=== PATIENT | female | born 1965 | race American Indian/Alaskan Native ===

== ENCOUNTER 2019-06-07 20:54 | Emergency (ER) | payer SELFPAY ==
--- NOTE | 2019-06-07 21:19 | Event Note ---
ED Screening Note Date of service: 06/07/19 Time: 21:13 ED Screening Note: Reports rt leg pain and swelling x 2 days. no sob cp. Denies clotting disorder and no previous blood clot. Denies injuries. Saw pcp 04/2019 and A1c13.H/o DM on Osampic qweekly injection. Reports neuropathy to feet. Has not seen PCP in 1 yearprior to EXT: Rt foot red/ swollen TTP. PT/DP brennan 2+. Left foot with small scrtach solitario This initial assessment/diagnostic orders/clinical plan/treatment(s) is/are subj ect to change based on patients health status, clinical progression and re- assessment by fellow clinical providers in the ED. Further treatment and workup at subsequent clinical providers discretion. Patient/guardian urged not to elope from the ED as their condition may be serious if not clinically assessed and managed. Initial orders include: labs, xray
[2019-06-07 21:25] VITALS: BP 141/89
[2019-06-07] MEDS ORDERED: TETANUS,DIPH,PERTUSS(ACELL) VACCINE 0.5 ML SYRINGE IM ONE (21:33)
--- NOTE | 2019-06-07 21:36 | Emergency Department Report ---
ED Extremity Problem HPI - General Chief complaint: Extremity Injury, Lower Stated complaint: LEG SWELLING Time Seen by Provider: 06/07/19 21:12 Source: patient Mode of arrival: Ambulatory Limitations: No Limitations - History of Present Illness Initial comments: 54-year-old female with history of diabetes presents to ED with right foot pain and swelling 2 days. She states the pain is radiating up into the ankle and right lower leg. Foot is mildly swollen. She denies trauma to the right foot. Denies any history of gout. Patient states she has been doing construction on her home, and sustained a skin tear to the LEFT fifth toe. Patient denies any other issues with the left foot. MD Complaint: extremity pain, extremity swelling -: days(s) (2) Location: right, other (foot) History of Same: No Radiation: proximal Quality: aching Consistency: constant Improves with: nothing Worsens with: nothing Associated Symptoms: denies: chest pain, shortness of breath, fever - Related Data Previous Rx's Medication Instructions Recorded Last Taken Type Naproxen [Naprosyn] 500 mg PO BID #20 tablet 06/07/19 Unknown Rx Sulfamethoxazole/Trimethoprim 1 each PO BID 10 Days #20 tablet 06/07/19 Unknown Rx [Bactrim DS TAB] cephALEXin [Keflex] 500 mg PO Q12HR 10 Days #20 cap 06/07/19 Unknown Rx Allergies Allergy/AdvReac Type Severity Reaction Status Date / Time No Known Allergies Allergy Unverified 06/07/19 21:16 ED Review of Systems ROS: Stated complaint: LEG SWELLING Other details as noted in HPI Comment: All other systems reviewed and negative Constitutional: denies: chills, fever Respiratory: denies: shortness of breath Cardiovascular: denies: chest pain Gastrointestinal: denies: nausea, vomiting Musculoskeletal: as per HPI ED Past Medical Hx - Past Medical History Previous Medical History?: Yes Hx Diabetes: Yes Additional medical history: Neuropathy - Surgical History Past Surgical History?: No - Social History Smoking Status: Never Smoker Substance Use Type: None - Medications Home Medications: Home Medications Medication Instructions Recorded Confirmed Last Taken Type Naproxen [Naprosyn] 500 mg PO BID #20 tablet 06/07/19 Unknown Rx Sulfamethoxazole/Trimethoprim 1 each PO BID 10 Days #20 tablet 06/07/19 Unknown Rx [Bactrim DS TAB] cephALEXin [Keflex] 500 mg PO Q12HR 10 Days #20 cap 06/07/19 Unknown Rx ED Physical Exam - General Limitations: No Limitations General appearance: alert, in no apparent distress - Head Head exam: Present: atraumatic, normocephalic - Eye Eye exam: Present: normal appearance - ENT ENT exam: Present: mucous membranes moist - Neck Neck exam: Present: normal inspection - Respiratory Respiratory exam: Present: normal lung sounds bilaterally. Absent: respiratory distress - Cardiovascular Cardiovascular Exam: Present: normal rhythm, tachycardia (slight) - GI/Abdominal GI/Abdominal exam: Absent: distended - Extremities Exam Extremities exam: Present: other (mild erythema and mild tenderness to the right great toe and dorsal right foot; very minimal swelling present to the right foot; no erythema present on right lower leg; skin tear present to left 5th toe, nontender). Absent: calf tenderness - Neurological Exam Neurological exam: Present: alert, oriented X3. Absent: motor sensory deficit - Psychiatric Psychiatric exam: Present: normal affect, normal mood - Skin Skin exam: Present: warm, dry, intact ED Course Vital Signs 06/07/19 20:58 Temperature 99.7 F H Pulse Rate 106 H Respiratory 20 Rate Blood Pressure 141/89 O2 Sat by Pulse 97 Oximetry ED Medical Decision Making - Lab Data Result diagrams: 06/07/19 22:41 06/07/19 22:41 - Radiology Data Radiology results: report reviewed, image reviewed - Medical Decision Making Right foot cellulitis. Xrays unremarkable. Hx diabetes, glucose 222, no sign of DKA. WBCs only mildly elevated at 11.5. Prescriptions given for antibiotics. Outpt f/u advised. Return precautions given. - Differential Diagnosis cellulitis Critical care attestation.: If time is entered above; I have spent that time in minutes in the direct care of this critically ill patient, excluding procedure time. ED Disposition Clinical Impression: Cellulitis of right foot Disposition: DC-01 TO HOME OR SELFCARE Is pt being admited?: No Condition: Stable Instructions: Cellulitis (ED) Prescriptions: Sulfamethoxazole/Trimethoprim [Bactrim DS TAB] 1 each PO BID 10 Days #20 tablet cephALEXin [Keflex] 500 mg PO Q12HR 10 Days #20 cap Naproxen [Naprosyn] 500 mg PO BID #20 tablet Referrals: PRIMARY CARE [Primary Care Provider] - 3-5 Days [facility] [Provider Group] - 3-5 Days Time of Disposition: 23:29
--- NOTE | 2019-06-07 22:09 | XRay Report ---
Right foot-3 views INDICATION: Rt foot pain swelling and redness. COMPARISON: None. IMPRESSION: No acute osseous or soft tissue abnormality. Bipartite medial sesamoid and mild great toe MTP DJD. Signer Name: Som Silva MD Signed: 06/07/2019 10:05 PM Workstation Name: [id number]
[2019-06-07 22:56] LABS: Basophils % (Auto) 0.4 % (0.0-1.8); Eosinophils # (Auto) 0.1 K/mm3 (0.0-0.4); Hematocrit 38.2 % (30.3-42.9); Hemoglobin 12.4 gm/dl (10.1-14.3); Lymphocytes # (Auto) 2.2 K/mm3 (1.2-5.4); Lymphocytes % (Auto) 19.2 % (13.4-35.0); Mean Corpuscular HGB Conc 32 % (30-34); Mean Corpuscular Volume 84 fl (79-97); Monocytes # (Auto) 1.1 K/mm3 (0.0-0.8); Monocytes % (Auto) 9.2 % (0.0-7.3); Platelet Count 250 K/mm3 (140-440); Red Blood Count 4.54 M/mm3 (3.65-5.03); Red Cell Distribution Width 11.9 % (13.2-15.2)
[2019-06-07 23:19] LABS: Alanine Aminotransferase 41 units/L (7-56); BUN/Creatinine Ratio 14; Blood Urea Nitrogen 7 mg/dL (7-17); Calcium 9.4 mg/dL (8.4-10.2); Hemolysis Index 40
== END 2019-06-07 23:40 | disposition home or self-care (01) ==
LOC: ED 20:54
DX: L03.115 Cellulitis of right lower limb (principal); E11.40 Type 2 diabetes mellitus with diabetic neuropathy, unspecified; Z79.899 Other long term (current) drug therapy
CPT/HCPCS: 36415; 80053; 85025; 90471; 90715

== ENCOUNTER 2019-06-11 14:03 | Inpatient (IN) | payer BC ==
--- NOTE | 2019-06-11 14:35 | Event Note ---
ED Screening Note Date of service: 06/11/19 Time: 14:34 ED Screening Note: Pt complains of worsening swelling/redness of right great toe x 2 days seen here in ED 2 days ago for same +DM placed on keflex and bactrim foot XR wnl +diabetic neuropathy states stuck a pin in the foot to see if pus drained-denies drainage WBCs 11.5 06/09/19 This initial assessment/diagnostic orders/clinical plan/treatment(s) is/are subject to change based on patients health status, clinical progression and re-assessment by fellow clinical providers in the ED. Further treatment and workup at subsequent clinical providers discretion. Patient/guardian urged not to elope from the ED as their condition may be serious if not clinically assessed and managed. Initial orders include: Labs
[2019-06-11 15:19] LABS: Basophils % (Auto) 0.4 % (0.0-1.8); Eosinophils # (Auto) 0.3 K/mm3 (0.0-0.4); Eosinophils % (Auto) 2.6 % (0.0-4.3); Hematocrit 36.7 % (30.3-42.9); Hemoglobin 12.1 gm/dl (10.1-14.3); Lymphocytes # (Auto) 1.6 K/mm3 (1.2-5.4); Lymphocytes % (Auto) 15.9 % (13.4-35.0); Mean Corpuscular HGB Conc 33 % (30-34); Mean Corpuscular Volume 84 fl (79-97); Monocytes # (Auto) 1.1 K/mm3 (0.0-0.8); Platelet Count 311 K/mm3 (140-440); Red Blood Count 4.37 M/mm3 (3.65-5.03); Red Cell Distribution Width 11.7 % (13.2-15.2)
[2019-06-11 15:38] LABS: BUN/Creatinine Ratio 17; Blood Urea Nitrogen 12 mg/dL (7-17); Calcium 9.5 mg/dL (8.4-10.2); Hemolysis Index 9
--- NOTE | 2019-06-11 17:38 | XRay Report ---
RIGHT FOOT 3 VIEWS INDICATION: foot pain. COMPARISON: 4 days prior. FINDINGS: No acute skeletal abnormality. There is soft tissue swelling in the forefoot medially in the region o f the great toe. IMPRESSION: 1. Soft tissue swelling in the great toe. No acute skeletal abnormality. Signer Name: Emil Torres MD Signed: 06/11/2019 5:34 PM Workstation Name: [id number]
[2019-06-11] MEDS ORDERED: PIPERACIL/TAZOBACTA 4.5/NS 100 4.5 GM/100 ML VIAL IV ONE (18:29)
[2019-06-11] MEDS ORDERED: SODIUM CHLORIDE 0.9% 1000 ML 1,000 ML IV ONE (18:29)
--- NOTE | 2019-06-11 18:34 | Emergency Department Report ---
<MORENITA GUZMAN - Last Filed: 06/11/19 18:29> - General Chief complaint: Extremity Problem,Nontraumatic Stated complaint: R TOE INFECTED Time Seen by Provider: 06/11/19 14:32 Source: patient Mode of arrival: Ambulatory Limitations: No Limitations - History of Present Illness Initial comments: This is a 54-year-old female nontoxic, well nourished in appearance, no acute signs of distress presents to the ED with c/o of worsening of right great toe. Stated now redness is going up to the foot to the joint. Patient was seen several days ago and was placed on Keflex and Bactrim. Stated has worsen with purulent drainage and swelling. Patient denies any fever, chills, nausea, vomiting, chest pain, short of breath, headache or stiff neck. Deneis any al lertgies with Medical history includes diabetes. -: days(s) Location: L foot Severity: mild Severity scale (0 -10): 8 Quality: aching Consistency: constant Improves with: none Worsens with: none Context: none Associated symptoms: denies other symptoms - Related Data Previous Rx's Medication Instructions Recorded Last Taken Type Naproxen [Naprosyn] 500 mg PO BID #20 tablet 06/07/19 Unknown Rx Sulfamethoxazole/Trimethoprim 1 each PO BID 10 Days #20 tablet 06/07/19 Unknown Rx [Bactrim DS TAB] cephALEXin [Keflex] 500 mg PO Q12HR 10 Days #20 cap 06/07/19 Unknown Rx Allergies Allergy/AdvReac Type Severity Reaction Status Date / Time No Known Allergies Allergy Unverified 06/07/19 21:16 Abscess Boil HPI - HPI Chief Complaint: Extremity Problem,Nontraumatic Stated Complaint: R TOE INFECTED Time Seen by Provider: 06/11/19 14:32 Home Medications: Previous Rx's Medication Instructions Recorded Last Taken Type Naproxen [Naprosyn] 500 mg PO BID #20 tablet 06/07/19 Unknown Rx Sulfamethoxazole/Trimethoprim 1 each PO BID 10 Days #20 tablet 06/07/19 Unknown Rx [Bactrim DS TAB] cephALEXin [Keflex] 500 mg PO Q12HR 10 Days #20 cap 06/07/19 Unknown Rx Allergies/Adverse Reactions: Allergies Allergy/AdvReac Type Severity Reaction Status Date / Time No Known Allergies Allergy Unverified 06/07/19 21:16 ED Review of Systems Constitutional: denies: chills, fever Eyes: denies: eye pain, eye discharge, vision change ENT: denies: ear pain, throat pain Respiratory: denies: cough, shortness of breath, wheezing Cardiovascular: denies: chest pain, palpitations Endocrine: no symptoms reported Gastrointestinal: denies: abdominal pain, nausea, diarrhea Genitourinary: denies: urgency, dysuria, discharge Musculoskeletal: denies: back pain, joint swelling, arthralgia Skin: denies: rash, lesions Neurological: denies: headache, weakness, paresthesias Psychiatric: denies: anxiety, depression Hematological/Lymphatic: denies: easy bleeding, easy bruising ED Past Medical Hx - Past Medical History Previous Medical History?: Yes Hx Diabetes: Yes Additional medical history: Neuropathy - Surgical History Past Surgical History?: No - Social History Smoking Status: Never Smoker Substance Use Type: None - Medications Home Medications: Home Medications Medication Instructions Recorded Confirmed Last Taken Type Naproxen [Naprosyn] 500 mg PO BID #20 tablet 06/07/19 Unknown Rx Sulfamethoxazole/Trimethoprim 1 each PO BID 10 Days #20 tablet 06/07/19 Unknown Rx [Bactrim DS TAB] cephALEXin [Keflex] 500 mg PO Q12HR 10 Days #20 cap 06/07/19 Unknown Rx ED Physical Exam - General Limitations: No Limitations General appearance: alert, in no apparent distress - Head Head exam: Present: atraumatic, normocephalic - Neck Neck exam: Present: normal inspection, full ROM - Extremities Exam Extremities exam: Present: full ROM, tenderness, normal capillary refill, joint swelling - Expanded Lower Extremity Exam Left Hip exam: Present: normal inspection, full ROM. Absent: tenderness Upper Leg exam: Present: normal inspection, full ROM. Absent: tenderness Knee exam: Present: normal inspection, full ROM. Absent: tenderness Lower Leg exam: Present: normal inspection, full ROM. Absent: tenderness Ankle exam: Present: normal inspection, full ROM. Absent: tenderness Foot/Toe exam: Present: full ROM, tenderness, swelling, ecchymosis, erythema. Absent: abrasion, laceration, deformity, crepidus, dislocation, amputation, puncture wound, foreign body, calcaneal tenderness, tenderness at base of 5th metatarsal, nail avulsion, subungual hematoma Neuro vascular tendon exam: Present: no vascular compromise Gait: Positive: observed and limited by pain 1 - abscess with cellultitis - Back Exam Back exam: Present: normal inspection, full ROM - Neurological Exam Neurological exam: Present: alert, oriented X3, normal gait - Psychiatric Psychiatric exam: Present: normal affect, normal mood ED Course - Reevaluation(s) Reevaluation #1: 06/11/19 18:32 Patient is speaking in full sentences with no signs of distress noted. - Consultations Consultation #1: 06/11/19 17:21 Patient has been consulted with Dr. Clemens about patient history, physical exam, and labs and agrees for admission Consultation #2: 06/11/19 18:33 Patient has been consulted with Marianela Villa about patient history, physical exam, and labs and agrees for admission with hospitalist ED Medical Decision Making - Lab Data Result diagrams: 06/11/19 14:58 06/11/19 14:58 - Medical Decision Making 54-year-old female that presents with right great toe sialitis an abscess. Patient is stable and was examined by me. Patient is treatment failure. Labs obtained. Patient was consulted with Dr. Ca. Patient is admitted with hospitalist. Patient started on Zosyn and clindamycin IV. At time of admission, the patient does not seem toxic or ill in appearance. No acute signs of distress noted. Patient agrees to admission treatment plan of care. No further questions noted by the patient. ED Disposition Clinical Impression: Cellulitis of right foot, Failure of outpatient treatment Foot ulcer Qualifiers: Laterality: right Non-pressure ulcer stage: with fat layer exposed Qualified Code(s): L97.512 - Non-pressure chronic ulcer of other part of right foot with fat layer exposed Disposition: 09 OP ADMIT IP TO THIS HOSP Is pt being admited?: Yes Condition: Critical <SERGIO CLEMENS III - Last Filed: 06/11/19 18:41> ED Review of Systems ROS: Stated complaint: R TOE INFECTED Other details as noted in HPI Comment: All other systems reviewed and negative ED Past Medical Hx - Past Medical History Previous Medical History?: Yes Hx Diabetes: Yes - Surgical History Past Surgical History?: No - Family History Family history: no significant - Social History Smoking Status: Never Smoker Substance Use Type: None ED Physical Exam - General Limitations: No Limitations General appearance: alert, in no apparent distress - Head Head exam: Present: atraumatic, normocephalic - Eye Eye exam: Present: normal appearance - ENT ENT exam: Present: mucous membranes moist - Neck Neck exam: Present: normal inspection - Respiratory Respiratory exam: Present: normal lung sounds bilaterally. Absent: respiratory distress - Cardiovascular Cardiovascular Exam: Present: regular rate, normal rhythm. Absent: systolic murmur, diastolic murmur, rubs, gallop - GI/Abdominal GI/Abdominal exam: Present: soft, normal bowel sounds - Rectal Rectal exam: Present: deferred - Extremities Exam Extremities exam: Present: normal inspection - Back Exam Back exam: Present: normal inspection - Neurological Exam Neurological exam: Present: alert, oriented X3 - Psychiatric Psychiatric exam: Present: normal affect, normal mood - Skin Skin exam: Present: warm, dry, normal color, other (open ulcer noted on the right great toe. Skin is degloving.). Absent: rash ED Course Vital Signs 06/11/19 06/11/19 14:12 18:32 Temperature 97.7 F Pulse Rate 89 Respiratory 18 16 Rate Blood Pressure 135/87 O2 Sat by Pulse 98 Oximetry - Reevaluation(s) Reevaluation #2: I discussed plan of care with patient. I examined the patient. Patient agrees with plan of care and admission. Patient will admitted to the hospital service. Dr. Ca has been consult. I discussed case with Dr. Ca. 06/11/19 18:39 ED Medical Decision Making - Lab Data Result diagrams: 06/11/19 14:58 06/11/19 14:58 Critical Care Time: Yes Critical care time in (mins) excluding proc time.: 35 Critical care attestation.: If time is entered above; I have spent that time in minutes in the direct care of this critically ill patient, excluding procedure time. Critical Care Time: 35 minutes ED Disposition Is pt being admited?: Yes Does the pt Need Aspirin: No Time of Disposition: 18:39
--- NOTE | 2019-06-11 21:42 | History and Physical Report ---
History of Present Illness Date of examination: 06/11/19 Date of admission: 06/11/19 20:20 Chief complaint: Right great to infection History of present illness: Pt is a 54-year-old female with PMHx of DM type 2 who presents to the ER with c/o right great toe infection. Pt states that she noticed that her right great toe was swollen, she came to the ER and was prescribed antibiotics. Pt states that she was seen in the ER 5 days ago and was started on the antibiotic (Keflex and Bactrim). Pt states that she developed a blister on her plantar area of the right great toe 2 days after starting the antibiotics, she notices yellow discharged around the blister, the swelling and pain get worse, pt states that she was concern for a DVT, she decided to return to the ER for evaluation. Pt c/o chills, she denies fever, denies nausea, denies vomiting, denies chest pain, denies short of breath, denies headache. Pt was seen in the ER, she was started on IV antibiotic and admitted for further evaluation and treatment. Past History Past Medical History: diabetes, hyperlipidemia Past Surgical History: No surgical history Social history: no significant social history Family history: no significant family history Medications and Allergies Allergies Allergy/AdvReac Type Severity Reaction Status Date / Time No Known Allergies Allergy Verified 06/11/19 21:55 Home Medications Medication Instructions Recorded Confirmed Last Taken Type Naproxen [Naprosyn] 500 mg PO BID #20 tablet 06/07/19 Unknown Rx Sulfamethoxazole/Trimethoprim 1 each PO BID 10 Days #20 tablet 06/07/19 Unknown Rx [Bactrim DS TAB] cephALEXin [Keflex] 500 mg PO Q12HR 10 Days #20 cap 06/07/19 Unknown Rx Review of Systems Musculoskeletal: other (right great toe swelling and pain) Exam - Constitutional Vitals: Temp Pulse Resp BP Pulse Ox 98.2 F 93 H 16 136/85 98 06/11/19 20:29 06/11/19 20:29 06/11/19 20:29 06/11/19 20:29 06/11/19 20:29 General appearance: Present: no acute distress - EENT Eyes: Present: EOM intact ENT: clear oral mucosa, dentition normal - Neck Neck: Present: normal ROM - Respiratory Respiratory effort: normal Respiratory: bilateral: CTA - Cardiovascular Rhythm: regular - Extremities Extremities: no ischemia Extremity abnormal: edema Peripheral Pulses: within normal limits - Abdominal General gastrointestinal: Present: soft, non-tender - Rectal Rectal Exam: deferred - Integumentary Integumentary: Present: warm - Musculoskeletal Musculoskeletal: strength equal bilaterally - Psychiatric Psychiatric: cooperative - Neurologic Neurologic: moves all extremities Results - Labs CBC & Chem 7: 06/11/19 14:58 06/11/19 14:58 Labs: Laboratory Last Values WBC 10.1 K/mm3 (4.5-11.0) 06/11/19 14:58 RBC 4.37 M/mm3 (3.65-5.03) 06/11/19 14:58 Hgb 12.1 gm/dl (10.1-14.3) 06/11/19 14:58 Hct 36.7 % (30.3-42.9) 06/11/19 14:58 MCV 84 fl (79-97) 06/11/19 14:58 MCH 28 pg (28-32) 06/11/19 14:58 MCHC 33 % (30-34) 06/11/19 14:58 RDW 11.7 % (13.2-15.2) L 06/11/19 14:58 Plt Count 311 K/mm3 (140-440) 06/11/19 14:58 Lymph % (Auto) 15.9 % (13.4-35.0) 06/11/19 14:58 Grand % (Auto) 11.0 % (0.0-7.3) H 06/11/19 14:58 Eos % (Auto) 2.6 % (0.0-4.3) 06/11/19 14:58 Baso % (Auto) 0.4 % (0.0-1.8) 06/11/19 14:58 Lymph # 1.6 K/mm3 (1.2-5.4) 06/11/19 14:58 Grand # 1.1 K/mm3 (0.0-0.8) H 06/11/19 14:58 Eos # 0.3 K/mm3 (0.0-0.4) 06/11/19 14:58 Baso # 0.0 K/mm3 (0.0-0.1) 06/11/19 14:58 Seg Neutrophils % 70.1 % (40.0-70.0) H 06/11/19 14:58 Seg Neutrophils # 7.1 K/mm3 (1.8-7.7) 06/11/19 14:58 Sodium 135 mmol/L (137-145) L 06/11/19 14:58 Potassium 3.6 mmol/L (3.6-5.0) 06/11/19 14:58 Chloride 97.2 mmol/L (98-107) L 06/11/19 14:58 Carbon Dioxide 24 mmol/L (22-30) 06/11/19 14:58 Anion Gap 17 mmol/L 06/11/19 14:58 BUN 12 mg/dL (7-17) 06/11/19 14:58 Creatinine 0.7 mg/dL (0.7-1.2) 06/11/19 14:58 Estimated GFR > 60 ml/min 06/11/19 14:58 BUN/Creatinine Ratio 17 % 06/11/19 14:58 Glucose 150 mg/dL (65-100) H 06/11/19 14:58 Calcium 9.5 mg/dL (8.4-10.2) 06/11/19 14:58 Assessment and Plan Assessment and plan: 1. Right great toe infection 2. DM type 2 3. HTN 4. Hyponatremia Plan: Admit to med/surg for right great toe infection Continue antibiotic with Clindamicin and Zosyn IVF for hydration Pain control with morphine PRN Resume home meds Consult [employer] Assistant for evaluation Accu check ACHS with insulin per sliding Dressing change daily Wound care consult DVT prophylaxis Plan d/w pt voiced understanding Advance Directives: Yes VTE prophylaxis?: Chemical Plan of care discussed with patient/family: Yes
[2019-06-11] MEDS ORDERED: MORPHINE 2 MG/1 ML INJ IV PRN (21:43)
[2019-06-11] MEDS ORDERED: ACETAMINOPHEN 325 MG TAB PO PRN (21:43)
[2019-06-11] MEDS ORDERED: ONDANSETRON 4 MG/2 ML INJ IV PRN (21:43)
[2019-06-12] MEDS: SODIUM CHLORIDE 0.9% 1000 ML 1,000 ML IV SCH ×2 (05:23→22:23)
[2019-06-12] MEDS ORDERED: PIPERACIL/TAZOBACTA 4.5/NS 100 4.5 GM/100 ML VIAL IV SCH (06:00)
[2019-06-12 06:21] LABS: Basophils % (Auto) 0.7 % (0.0-1.8); Eosinophils # (Auto) 0.3 K/mm3 (0.0-0.4); Eosinophils % (Auto) 4.2 % (0.0-4.3); Hematocrit 34.7 % (30.3-42.9); Hemoglobin 11.5 gm/dl (10.1-14.3); Lymphocytes # (Auto) 1.4 K/mm3 (1.2-5.4); Lymphocytes % (Auto) 19.9 % (13.4-35.0); Mean Corpuscular HGB Conc 33 % (30-34); Mean Corpuscular Volume 84 fl (79-97); Monocytes # (Auto) 0.9 K/mm3 (0.0-0.8); Monocytes % (Auto) 11.8 % (0.0-7.3); Platelet Count 293 K/mm3 (140-440); Red Blood Count 4.14 M/mm3 (3.65-5.03); Red Cell Distribution Width 11.7 % (13.2-15.2)
[2019-06-12 06:59] LABS: BUN/Creatinine Ratio 18; Blood Urea Nitrogen 9 mg/dL (7-17); Calcium 8.9 mg/dL (8.4-10.2); Hemolysis Index 0
[2019-06-12] MEDS: INSULIN REGULAR, HUMAN 100 UNITS/1 ML SUB-Q SCH ×4 (09:15→22:22)
[2019-06-12] MEDS ORDERED: INSULIN REGULAR, HUMAN 100 UNITS/1 ML SUB-Q SCH (11:30)
[2019-06-12] MEDS ORDERED: LIDOCAINE (1%) 10 MG/1 ML VIAL 20 ML MDV INFILTRATI NR (13:15)
--- NOTE | 2019-06-12 13:39 | Consultation ---
History of Present Illness Consult date: 06/12/19 - History of present illness History of present illness: 54 yo diabetic female with right great toe infection. Her last A1c that she remembers was > 13. She does not smoke. No prior h/o PAD. Past History Past Medical History: diabetes, hyperlipidemia Past Surgical History: No surgical history Social history: no significant social history Family history: no significant family history Medications and Allergies Allergies Allergy/AdvReac Type Severity Reaction Status Date / Time No Known Allergies Allergy Verified 06/11/19 21:55 Home Medications Medication Instructions Recorded Confirmed Last Taken Type Naproxen [Naprosyn] 500 mg PO BID #20 tablet 06/07/19 06/12/19 Unknown Rx Sulfamethoxazole/Trimethoprim 1 each PO BID 10 Days #20 tablet 06/07/19 06/12/19 Unknown Rx [Bactrim DS TAB] cephALEXin [Keflex] 500 mg PO Q12HR 10 Days #20 cap 06/07/19 06/12/19 Unknown Rx Adult Multi Gummies 1 each PO DAILY 06/12/19 06/12/19 Unknown History Nf 1 each PO DAILY 06/12/19 06/12/19 Unknown History Norvasc 5 mg PO DAILY 06/12/19 06/12/19 Unknown History Ozempic 2 mg SQ 1XW 06/12/19 06/12/19 Unknown History Vitamin B-12 1 tab PO DAILY 06/12/19 06/12/19 Unknown History Active Meds: Active Medications Acetaminophen (Tylenol) 650 mg PO Q4H PRN PRN Reason: Pain MILD(1-3)/Fever >100.5/FUENTES Sodium Chloride (Nacl 0.9% 1000 Ml) 1,000 mls @ 100 mls/hr IV DIRECT MAT Last Admin: 06/12/19 05:23 Dose: 100 mls/hr Documented by: Clindamycin HCl (Cleocin 900 Mg/50 Ml) 900 mg in 50 mls @ 100 mls/hr IV Q8HR MAT; Protocol Last Admin: 06/12/19 05:23 Dose: 100 mls/hr Documented by: Insulin Human Regular (Humulin R) 0 units SUB-Q ACHS MAT; Protocol Last Admin: 06/12/19 12:32 Dose: 2 units Documented by: Lidocaine (Xylocaine 1% 20 Ml) 10 ml INFILTRATI PREOP NR Stop: 06/12/19 23:59 Morphine Sulfate (Morphine) 2 mg IV Q4H PRN PRN Reason: Pain, Moderate (4-6) Ondansetron HCl (Zofran) 4 mg IV Q8H PRN PRN Reason: Nausea And Vomiting Sodium Chloride (Sodium Chloride Flush Syringe 10 Ml) 10 ml IV BID MAT Last Admin: 06/12/19 10:07 Dose: 10 ml Documented by: Sodium Chloride (Sodium Chloride Flush Syringe 10 Ml) 10 ml IV PRN PRN PRN Reason: LINE FLUSH Review of Systems All systems: negative (none.) Exam Vital Signs Temp Pulse Resp BP Pulse Ox 97.7 F 89 18 135/87 98 06/11/19 14:12 06/11/19 14:12 06/11/19 14:12 06/11/19 14:12 06/11/19 14:12 - General physical appearance Positive: well developed, well nourished, no distress - Eyes Positive: PERRL, normal occular movement - ENT Positive: normal pinna, normal nares, normal mucosa, no hearing loss, no congestion - Neck Positive: no masses, no bruits, trachea midline, no venous distension - Respiratory Positive: normal expansion, normal respiratory effort, clear to auscultation - Cardiovascular Rhythm: regular Heart Sounds: Present: S1 & S2. Absent: rub, click - Extremities Extremities: pulses intact Extremity abnormal: other (The right great toe is edematous with a 5 mm open wound medially. This is not draining and I cannot appreciate any fluctuance or crepitus. The right DP pulse is 2+.) - Breasts Breasts: deferred - Abdomen Abdomen: Present: soft, bowel sounds normal. Absent: tender, distended Hernia: none - Genitourinary Female Genitourinary: deferred - Neurologic Neurologic: alert and oriented to time, place and person, motor strength and sensation are grossly intact - Musculoskeletal normal gait, normal posture - Psychiatric Psychiatric: appropriate mood/affect, intact judgment & insight Results - Labs 06/12/19 05:32 06/12/19 05:32 Abnormal lab results 06/11/19 06/11/19 06/12/19 Range/Units 14:58 14:58 05:32 RDW 11.7 L 11.7 L (13.2-15.2) % [place] % (Auto) 11.0 H 11.8 H (0.0-7.3) % [place] # 1.1 H 0.9 H (0.0-0.8) K/mm3 Seg Neutrophils % 70.1 H (40.0-70.0) % Sodium 135 L (137-145) mmol/L Chloride 97.2 L (98-107) mmol/L Creatinine (0.7-1.2) mg/dL Glucose 150 H (65-100) mg/dL POC Glucose (70-105) 06/12/19 06/12/19 06/12/19 Range/Units 05:32 08:39 11:24 RDW (13.2-15.2) % [place] % (Auto) (0.0-7.3) % [place] # (0.0-0.8) K/mm3 Seg Neutrophils % (40.0-70.0) % Sodium (137-145) mmol/L Chloride (98-107) mmol/L Creatinine 0.5 L (0.7-1.2) mg/dL Glucose 185 H (65-100) mg/dL POC Glucose 166 H 201 H (70-105) Diabetes panel 06/11/19 06/12/19 Range/Units 14:58 05:32 Sodium 135 L 139 (137-145) mmol/L Potassium 3.6 3.6 (3.6-5.0) mmol/L Chloride 97.2 L 102.0 (98-107) mmol/L Carbon Dioxide 24 24 (22-30) mmol/L BUN 12 9 (7-17) mg/dL Creatinine 0.7 0.5 L (0.7-1.2) mg/dL Glucose 150 H 185 H (65-100) mg/dL Calcium 9.5 8.9 (8.4-10.2) mg/dL Calcium panel 06/11/19 06/12/19 Range/Units 14:58 05:32 Calcium 9.5 8.9 (8.4-10.2) mg/dL Pituitary panel 06/11/19 06/12/19 Range/Units 14:58 05:32 Sodium 135 L 139 (137-145) mmol/L Potassium 3.6 3.6 (3.6-5.0) mmol/L Chloride 97.2 L 102.0 (98-107) mmol/L Carbon Dioxide 24 24 (22-30) mmol/L BUN 12 9 (7-17) mg/dL Creatinine 0.7 0.5 L (0.7-1.2) mg/dL Glucose 150 H 185 H (65-100) mg/dL Calcium 9.5 8.9 (8.4-10.2) mg/dL Adrenal panel 06/11/19 06/12/19 Range/Units 14:58 05:32 Sodium 135 L 139 (137-145) mmol/L Potassium 3.6 3.6 (3.6-5.0) mmol/L Chloride 97.2 L 102.0 (98-107) mmol/L Carbon Dioxide 24 24 (22-30) mmol/L BUN 12 9 (7-17) mg/dL Creatinine 0.7 0.5 L (0.7-1.2) mg/dL Glucose 150 H 185 H (65-100) mg/dL Calcium 9.5 8.9 (8.4-10.2) mg/dL Assessment and Plan - Patient Problems (1) Abscess of great toe, right Current Visit: Yes Status: Acute Plan to address problem: 1) MRI with contrast of right foot 2) Arterial dopplers of RLE 3) Check A1c 4) Broad spectrum antibiotics 5) Strict DM control 6) NPO after MN in case I&D is needed.
--- NOTE | 2019-06-12 13:42 | Discharge Summary ---
Providers - Providers Date of Admission: 06/11/19 20:20 Date of discharge: 06/12/19 Attending physician: CHUCHO HOLDER 06/11/19 23:14 Consult to Wound/ET Nurse [CONS] Routine Reason For Exam: wound eval 06/12/19 08:22 Consult to Wound/ET Nurse [CONS] Routine Reason For Exam: wound eval 06/12/19 13:31 Consult to Physician [CONS] Routine Comment: Consulting Provider: NAVIN RAPP Physician Instructions: Reason For Exam: Rt LE wound Primary care physician: PATIENT FIN[employer]CIAL SERVICES SPECIALIST Hospitalization Condition: Critical Hospital course: Discharge diagnosis: 1. Right great toe cellulites with ulcer 2. DM type 2, A1c 13.5 about a month ago 3. HTN 4. Hyponatremia, resolved Disposition: - TO HOME OR SELFCARE Time spent for discharge: 34 minutes Core Measure Documentation - Palliative Care Palliative Care/ Comfort Measures: Not Applicable - Core Measures Any of the following diagnoses?: none Exam - Constitutional Vitals: Temp Pulse Resp BP Pulse Ox 98.3 F 86 20 138/83 97 06/12/19 13:00 06/12/19 13:00 06/12/19 13:00 06/12/19 13:00 06/12/19 13:00 Plan Activity: advance as tolerated Weight Bearing Status: Weight Bear as Tolerated Diet: low fat, diabetic Wound: per wound nurse instructions Special Instructions: record blood sugar diary Follow up with: PRIMARY CARE, [Primary Care Provider] - 3-5 Days NAVIN RAPP DO [Staff Physician] - 7 Days Prescriptions: Clindamycin [Clindamycin CAP] 600 mg PO BID #10 capsule cephALEXin [Keflex] 500 mg PO Q12HR 10 Days #20 cap
[2019-06-12] MEDS ORDERED: OZEMPIC 2 MG SQ SCH (13:45)
--- NOTE | 2019-06-12 14:14 | Progress Note ---
Assessment and Plan 1. Right great toe cellulites with ulcer 2. DM type 2, A1c 13.5 about a month ago 3. HTN, stable 4. Hyponatremia, resolved - Continue to monitor the patient at massage, continue IV antibiotic -We'll follow culture, done for I&D tomorrow in the OR - We will obtain MRI for possible osteomyelitis - We'll continue consistent carb diet, sliding scale of insulin and long-acting insulin - We'll resume home medications for hypertension - Continue IV fluid hydration, DVT prophylaxis and as needed pain medicine Subjective Date of service: 06/12/19 Interval history: Patient seen and examined. Medical records and medication list reviewed. No acute event overnight noted by the RN. Patient denies any chest pain or difficulty breathing. Patient is tolerating diet. Patient was seen by Dr. Kwong and plan for I&D tomorrow Discussed plan of care at bedside with patient. Objective - Exam Narrative Exam: - General physical appearance Positive: well developed, well nourished, no distress - Eyes Positive: PERRL, normal occular movement - ENT Positive: normal pinna, normal nares, normal mucosa, no hearing loss, no con gestion - Neck Positive: no masses, no bruits, trachea midline, no venous distension - Respiratory Positive: normal expansion, normal respiratory effort, clear to auscultation - Cardiovascular Rhythm: regular Heart Sounds: Present: S1 & S2. Absent: rub, click - Extremities Extremities: pulses intact Extremity abnormal: other (The right great toe is edematous with a 5 mm open wound medially. This is not draining and I cannot appreciate any fluctuance or crepitus. The right DP pulse is 2+.) - Breasts Breasts: deferred - Abdomen Abdomen: Present: soft, bowel sounds normal. Absent: tender, distended Hernia: none - Genitourinary Female Genitourinary: deferred - Neurologic Neurologic: alert and oriented to time, place and person, motor strength and sensation are grossly intact - Musculoskeletal normal gait, normal posture - Psychiatric Psychiatric: appropriate mood/affect, intact judgment & insight - Constitutional Vitals: Vital Signs - 12hr 06/12/19 06/12/19 04:45 13:00 Temperature 98.1 F 98.3 F Pulse Rate 89 86 Respiratory 18 20 Rate Blood Pressure 140/85 Blood Pressure 138/83 [Right] O2 Sat by Pulse 96 97 Oximetry - Labs CBC & Chem 7: 06/12/19 05:32 06/12/19 05:32 Labs: Abnormal lab results 06/11/19 06/11/19 06/12/19 Range/Units 14:58 14:58 05:32 RDW 11.7 L 11.7 L (13.2-15.2) % [place] % (Auto) 11.0 H 11.8 H (0.0-7.3) % [place] # 1.1 H 0.9 H (0.0-0.8) K/mm3 Seg Neutrophils % 70.1 H (40.0-70.0) % Sodium 135 L (137-145) mmol/L Chloride 97.2 L (98-107) mmol/L Creatinine (0.7-1.2) mg/dL Glucose 150 H (65-100) mg/dL POC Glucose (70-105) 06/12/19 06/12/19 06/12/19 Range/Units 05:32 08:39 11:24 RDW (13.2-15.2) % [place] % (Auto) (0.0-7.3) % [place] # (0.0-0.8) K/mm3 Seg Neutrophils % (40.0-70.0) % Sodium (137-145) mmol/L Chloride (98-107) mmol/L Creatinine 0.5 L (0.7-1.2) mg/dL Glucose 185 H (65-100) mg/dL POC Glucose 166 H 201 H (70-105)
--- NOTE | 2019-06-12 15:04 | Vascular Lab Report ---
DUPLEX DOPPLER LOWER EXTREMITY ARTERIAL, RIGHT INDICATION: Diabetic right great toe abscess. TECHNIQUE: Arterial duplex examination of the right lower extremity performed using B-mode, color flow and spect ral Doppler assessment. FINDINGS: RIGHT: Common Femoral Artery: PSV 113 cm/sec. Triphasic waveform. Proximal SFA: PSV 98 cm/sec. Triphasic waveform. Mid SFA: PSV 113 cm/sec. Triphasic waveform. Distal SFA: PSV 87 cm/sec. Triphasic waveform. Popliteal artery: PSV 85 cm/sec. Triphasic waveform. Posterior tibial artery: PSV 80 cm/sec. Triphasic waveform. Dorsalis Pedis Artery: PSV 119 cm/sec. Triphasic waveform. IMPRESSION: 1. No significant lower extremity peripheral artery disease. Ankle-Brachial Index (JELENA): * Calcified arteries > 1.4 * Normal = 0.9-1.4 * Mild PAD = 0.7-0.89 * Moderate PAD = 0.51-0.69 * Severe PAD < 0.5 Doppler Waveform: * Triphasic is normal. * Biphasic is abnormal if clear transition from triphasic signal along vascular tree. * Monophasic is abnormal. Signer Name: Som Silva MD Signed: 06/12/2019 3:00 PM Workstation Name: [id number]
--- NOTE | 2019-06-12 16:33 | Magnetic Resonance Report ---
MRI right foot HISTORY: Diabetic right great toe abscess. TECHNIQUE: 20 mL of MultiHance was given intravenously. COMPARISON: Right foot radiographs from yesterday FINDINGS: There is a soft tissue wound about the plantar aspect of the great toe with abnormal soft tissue swelling within the great toe as well as abnormal bone marrow edema and low T1 signal involvin g the distal phalanx of the great toe extending to the IP joint. This same portion of bone demonstrat es abnormal enhancement. Also on the postcontrast series, there is a rim-enhancing collection along t he lateral aspect of the great toe abutting the distal phalanx which measures 1.2 x 1.1 x 1.9 cm as m easured on image #14 of series 10 and image #21 of series #11 consistent with abscess formation. Aside from degenerative changes greatest at the great toe MTP joint and mild generalized swelling ext ending to the dorsum of the forefoot, no other significant abnormality identified within the foot. IMPRESSION: Findings of acute osteomyelitis involving the distal phalanx of the great toe, with absc ess formation abutting the distal phalanx laterally. Signer Name: Som Silva MD Signed: 06/12/2019 4:29 PM Workstation Name: [id number]
[2019-06-12] MEDS: amLODIPine 5 MG TAB PO SCH (17:39)
[2019-06-12] MEDS: NAPROXEN 500 MG TAB PO SCH (22:21)
[2019-06-13] MEDS: INSULIN REGULAR, HUMAN 100 UNITS/1 ML SUB-Q SCH ×4 (07:30→21:58)
[2019-06-13] MEDS ORDERED: VITAMIN B12 PO SCH (10:00)
[2019-06-13] MEDS ORDERED: NORVASC 5 MG PO SCH (10:00)
[2019-06-13] MEDS: amLODIPine 5 MG TAB PO SCH (10:03)
[2019-06-13] MEDS: CYANOCOBALAMIN (VIT B-12) 100 MCG TAB PO SCH (10:04)
[2019-06-13] MEDS: NAPROXEN 500 MG TAB PO SCH ×2 (10:04→21:59)
[2019-06-13] MEDS: SODIUM CHLORIDE 0.9% 1000 ML 1,000 ML IV SCH ×2 (11:30→20:24)
--- NOTE | 2019-06-13 11:30 | Anesthesia Day of Surgery ---
Anesthesia Day of Surgery - Day of Surgery Patient Examined: Yes Patient H&P Reviewed: Yes Patient is NPO: Yes
--- NOTE | 2019-06-13 11:30 | Anesthesia Consultation ---
Anesthesia Consult and Med Hx Date of service: 06/13/19 - Airway Anesthetic Teeth Evaluation: Good ROM Head & Neck: Adequate Mental/Hyoid Distance: Adequate Mallampati Class: Class II Intubation Access Assessment: Good - Pulmonary Exam CTA: Yes - Cardiac Exam Cardiac Exam: RRR - Pre-Operative Health Status ASA Pre-Surgery Classification: ASA3 Proposed Anesthetic Plan: General, MAC (DM, HTN, high CHL) - Pulmonary Hx Asthma: No COPD: No Hx Pneumonia: No - Cardiovascular System Hx Hypertension: Yes Hx Coronary Artery Disease: No Hx Heart Attack/AMI: No Hx Angina: No Hx Percutaneous Transluminal Coronary Angioplasty (PTCA): No Hx Pacemaker: No Hx Internal Defibrillator: No Hx Valvular Heart Disease: No Hx Heart Murmur: No Hx Peripheral Vascular Disease: No - Central Nervous System Hx Seizures: No CVA: No Hx Psychiatric Problems: No - Gastrointestinal Hx Ulcer: No - Endocrine Hx Renal Disease: No Hx End Stage Renal Disease: No Hx Cirrhosis: No Hx Liver Disease: No Hx Hypothyroidism: No Hx Hyperthyroidism: No - Hematic Hx Anemia: No Hx Sickle Cell Disease: No - Other Systems Hx Cancer: No
[2019-06-13] MEDS ORDERED: BUPIVACAINE-EPINEPHRINE/PF 0.5%-1:200,000 (30 ML) VIAL INFILTRATI ONE (11:32)
--- NOTE | 2019-06-13 11:37 | Progress Note ---
Assessment and Plan - Patient Problems (1) Abscess of great toe, right Current Visit: Yes Status: Acute Plan to address problem: 1) I had a long d/w the pt regarding her options. I&D today was recommended and she agrees. A six week course of IV antibiotics and 8 weeks of HBOT vs amputation of the great toe were also discussed. Pt will think these options over and we will decide on a plan over the next several days. 2) I have put in a consult for ID. 3) Deep cultures will be obtained in the OR. 4) Pt was made aware of the alf complications of uncontrolled DM including major amputation, ESRD, blindness, CAD, CVA and early . She says she is going to do better re DM control. Subjective Date of service: 06/13/19 Patient Reports: Positive: no new complaints Objective Vital Signs - 12hr 06/13/19 04:38 Temperature 97.6 F Pulse Rate 78 Respiratory 24 Rate Blood Pressure 129/77 O2 Sat by Pulse 97 Oximetry - Integumentary other (No change in right great toe exam.) - Labs 06/12/19 05:32 06/12/19 05:32 Diabetes panel 06/12/19 Range/Units 05:32 Hemoglobin A1c 12.5 H (4-6) % - Imaging Additional Studies: MRI reveals a small abscess along the lateral aspect of the right great toe. There was also osteomyelitis of the distal phalanx of the right great toe.
[2019-06-13] MEDS ORDERED: MIDAZOLAM 2 MG/2 ML INJ IV NR (12:00)
[2019-06-13] MEDS ORDERED: HYDROmorphone 1 MG/1 ML INJ IV PRN (12:00)
[2019-06-13] MEDS ORDERED: LIDOCAINE MPF (2%) 20 MG/1 ML VIAL 5 ML ONE (12:07)
[2019-06-13] MEDS ORDERED: PROPOFOL 200 MG/20 ML VIAL IV ONE (12:07)
[2019-06-13] MEDS ORDERED: MIDAZOLAM 2 MG/2 ML INJ ONE (12:07)
[2019-06-13] MEDS ORDERED: KETAMINE/STERILE WATER 50 MG/ML SYRINGE ONE (12:09)
[2019-06-13] MEDS ORDERED: LIDOCAINE (1%) 10 MG/1 ML VIAL 20 ML MDV INFILTRATI ONE (12:27)
[2019-06-13] MEDS ORDERED: LIDOCAINE (1%) 10 MG/1 ML VIAL 20 ML MDV ONE (12:27)
[2019-06-13] MEDS ORDERED: SODIUM CHLORIDE 0.9% IRR 1,500 ML BOTTLE IR ONE (12:28)
--- NOTE | 2019-06-13 12:42 | Procedure Note ---
Date of procedure: 06/13/19 Pre-op diagnosis: Right lateral great toe abscess Post-op diagnosis: same Procedure: I&D, deep of right great toe abscess Description of procedure: Pt was placed supine on the OR table. MAC anesthesia was administered. Right foot was prepped and draped. An incision was made over the lateral aspect of the great toe at the level of the distal phalanx. A small amount of pus was drained and this was collected for C&S. The wound was explored with a hemostat and the abscess cavity was found to be in continuity with the distal phalanx. The wound was then irrigated and packed open with Iodoform wick. A Kerlix wrap was then applied about the toe and foot. Pt tolerated the procedure well. She was taken to PACU in good condition. Anesthesia: MAC Surgeon: ZAY SIMPSON Estimated blood loss: minimal Pathology: list (Deep C&S) Specimen disposition: to lab Condition: stable Disposition: PACU
--- NOTE | 2019-06-13 15:03 | Post Anesthesia Evaluation ---
- Post Anesthesia Evaluation Patient Participated: Yes Airway Patent: Yes Stable Respiratory Function: Yes Temp > 96.8F: Yes Pain Manageable: Yes Adequeate Hydration: Yes Anesthesia Complications: No Block Receding Appropriately: Not Applicable Patient on Ventilator: No
[2019-06-14] MEDS: INSULIN REGULAR, HUMAN 100 UNITS/1 ML SUB-Q SCH ×4 (09:31→22:25)
[2019-06-14] MEDS ORDERED: VANCOMYCIN/NS 1 GM/250 ML 1 GM/250 ML BAG IV SCH (12:00)
--- NOTE | 2019-06-14 13:52 | Progress Note ---
Assessment and Plan 1. Right great toe cellulites with ulcer and osteomyelitis to distal phalanxes 2. DM type 2, A1c 13.5 about a month ago 3. HTN, stable 4. Hyponatremia, resolved - Continue to monitor the patient at massage, continue IV antibiotic -We'll follow culture, plan for I&D today in the OR - MRI sizes too for distal phalanx osteomyelitis - we'll follow surgical culture are following I&D - We will also consult ID for antibiotic coverage - We'll continue consistent carb diet, sliding scale of insulin and long-acting insulin - We'll resume home medications for hypertension - Continue IV fluid hydration, DVT prophylaxis and as needed pain medicine Subjective Date of service: 06/13/19 Interval history: Patient seen and examined. Medical records and medication list reviewed. No acute event overnight noted by the RN. Patient denies any chest pain or difficulty breathing. Patient is tolerating diet. patient is to go for I&D today, MRI of the right foot is suggestive of osteomyelitis Discussed plan of care at bedside with patient. Objective - Exam Narrative Exam: - General physical appearance Positive: well developed, well nourished, no distress - Eyes Positive: PERRL, normal occular movement - ENT Positive: normal pinna, normal nares, normal mucosa, no hearing loss, no congestion - Neck Positive: no masses, no bruits, trachea midline, no venous distension - Respiratory Positive: normal expansion, normal respiratory effort, clear to auscultation - Cardiovascular Rhythm: regular Heart Sounds: Present: S1 & S2. Absent: rub, click - Extremities Extremities: pulses intact Extremity abnormal: other (The right great toe is edematous with a 5 mm open wound medially. This is not draining and I cannot appreciate any fluctuance or crepitus. The right DP pulse is 2+.) - Breasts Breasts: deferred - Abdomen Abdomen: Present: soft, bowel sounds normal. Absent: tender, distended Hernia: none - Genitourinary Female Genitourinary: deferred - Neurologic Neurologic: alert and oriented to time, place and person, motor strength and sensation are grossly intact - Musculoskeletal normal gait, normal posture - Psychiatric Psychiatric: appropriate mood/affect, intact judgment & insight - Constitutional Vitals: Vital Signs - 12hr 06/14/19 06/14/19 05:17 12:29 Temperature 97.8 F 97.7 F Pulse Rate 78 81 Respiratory 20 16 Rate Blood Pressure 161/88 159/92 O2 Sat by Pulse 99 96 Oximetry - Labs CBC & Chem 7: 06/12/19 05:32 06/12/19 05:32 Labs: Abnormal lab results 06/13/19 06/13/19 06/14/19 Range/Units 17:12 21:10 08:08 POC Glucose 184 H 259 H 226 H (70-105)
[2019-06-14] MEDS: NAPROXEN 500 MG TAB PO SCH ×2 (13:59→22:27)
[2019-06-14] MEDS ORDERED: CLINDAMYCIN 600 MG/50 mL 600 MG/50 ML BAG IV SCH (14:00)
--- NOTE | 2019-06-14 14:00 | Progress Note ---
Assessment and Plan / Right great toe cellulites with ulcer and osteomyelitis to distal phalanxes - Continue to monitor the patient at [facility], continue IV antibiotic -s/p I&D 06/13/19 in the OR by Dr. Kwong - MRI suggestive of for distal phalanx osteomyelitis -wound culture and surgical culture growing staph aureus - We will also consult ID for antibiotic coverage - Patient currently on clindamycin IV every 8 hours /DM type 2, A1c 13.5 about a month ago - We'll continue consistent carb diet, sliding scale of insulin and long-acting insulin / HTN, moderately controlled -We'll increase Norvasc to 10 MG daily / Hyponatremia, resolved ontinue IV fluid hydration DVT prophylaxis with lovenox and as needed pain medicine MRI right foot: Findings of acute osteomyelitis involving the distal phalanx of the great toe, with abscess formation abutting the distal phalanx laterally. Brief history: Pt is a 54-year-old female with PMHx of DM type 2 who presents to the ER with c/o right great toe infection. Pt states that she noticed that her right great toe was swollen, she came to the ER and was prescribed antibiotics and discharge home. Pt states that she developed a blister on her plantar area of the right great toe 2 days after starting the antibiotics, she notices yellow discharged around the blister, the swelling and pain get worse, she was also concern for a DVT, she decided to return to the ER for evaluation. Pt was seen in the ER, she was started on IV antibiotic and admitted for further evaluation and treatment. Status post I&D by Dr. Kwong, MRI suggestive of acute osteomyelitis, consulted ID for antibiotic coverage. Microbiology 06/13/19 Unknown Toe - Right Big Surgical Culture - Preliminary Staphylococcus Aureus 06/12/19 08:22 Toe - Right Big Wound Culture - Final Staphylococcus Aureus Subjective Date of service: 06/14/19 Interval history: Patient seen and examined. Medical records and medication list reviewed. No acute event overnight noted by the RN. Patient denies any chest pain or difficulty breathing. Patient is tolerating diet. s/p I and yesterday = doing well Discussed plan of care at bedside with patient. Objective - Exam Narrative Exam: - General physical appearance Positive: well developed, well nourished, no distress - Eyes Positive: PERRL, normal occular movement - ENT Positive: normal pinna, normal nares, normal mucosa, no hearing loss, no congestion - Neck Positive: no masses, no bruits, trachea midline, no venous distension - Respiratory Positive: normal expansion, normal respiratory effort, clear to auscultation - Cardiovascular Rhythm: regular Heart Sounds: Present: S1 & S2. Absent: rub, click - Extremities Extremities: pulses intact Extremity abnormal: other (The right great toe is edematous with wound dressing) - Breasts Breasts: deferred - Abdomen Abdomen: Present: soft, bowel sounds normal. Absent: tender, distended Hernia: none - Genitourinary Female Genitourinary: deferred - Neurologic Neurologic: alert and oriented to time, place and person, motor strength and sensation are grossly intact - Musculoskeletal normal gait, normal posture - Psychiatric Psychiatric: appropriate mood/affect, intact judgment & insight - Constitutional Vitals: Vital Signs - 12hr 06/14/19 06/14/19 05:17 12:29 Temperature 97.8 F 97.7 F Pulse Rate 78 81 Respiratory 20 16 Rate Blood Pressure 161/88 159/92 O2 Sat by Pulse 99 96 Oximetry - Labs CBC & Chem 7: 06/12/19 05:32 06/12/19 05:32 Labs: Abnormal lab results 06/13/19 06/13/19 06/14/19 Range/Units 17:12 21:10 08:08 POC Glucose 184 H 259 H 226 H (70-105)
[2019-06-14] MEDS: CYANOCOBALAMIN (VIT B-12) 100 MCG TAB PO SCH (14:11)
[2019-06-14] MEDS: amLODIPine 5 MG TAB PO SCH (14:11)
[2019-06-14] MEDS: SODIUM CHLORIDE 0.9% 1000 ML 1,000 ML IV SCH (14:12)
[2019-06-14] MEDS: amLODIPine 10 MG TAB PO SCH (15:55)
[2019-06-14] MEDS ORDERED: hydrALAZINE 20 MG/1 ML INJ IV PRN (18:33)
--- NOTE | 2019-06-14 20:26 | Consultation ---
History of Present Illness - Reason for Consult Consult date: 06/14/19 - History of Present Illness 54 yo M PMHx DM2 admitted to the ER with complaints of a right toe infection. She notes increased swelling and pain with a purulent discharge. She was seen in the ER 5 days prior to admission with the same complaints and was given Keflex abd Bacttrim, however after this she developed a blister in the toe. Her symptoms continued to progress at that point, necessitating another trip to the ER. She complained of chills but denied fevers or other symptoms. She was taken to the OR for debridement, but was unwilling to go through with amputation. Cultures with MSSA. Imaging personally reviewed: MRI - osteo of the distal phalanx of the great toe with abscess Review of systems: Bold if positive; otherwise negative GENERAL: fever, chills, weight loss, fatigue, night sweats EYES: blurry vision, eye pain HENT: headache, hearing loss, sore throat, dysphagia, sinus pain CARDIO: chest pain, palpitations, orthopnea PULM: shortness of breath, wheezing, cough, sputum, hemoptysis GI: nausea, vomiting, diarrhea, abdominal pain, blood in stool : urinary frequency, urgency, dysuria, urethral discharge MSK: joint pain, back pain, swelling SKIN: rash, redness HEME: easy bruising, bleeding Past History Past Medical History: diabetes, hyperlipidemia Past Surgical History: No surgical history Social history: no significant social history Family history: no significant family history Medications and Allergies Allergies Allergy/AdvReac Type Severity Reaction Status Date / Time No Known Allergies Allergy Verified 06/11/19 21:55 Home Medications Medication Instructions Recorded Confirmed Last Taken Type Naproxen [Naprosyn TAB] 500 mg PO BID #20 tablet 06/07/19 06/12/19 Unknown Rx Adult Multi Gummies 1 each PO DAILY 06/12/19 06/12/19 Unknown History Clindamycin [Clindamycin CAP] 600 mg PO BID #10 capsule 06/12/19 Unknown Rx Norvasc 5 mg PO DAILY 06/12/19 06/12/19 Unknown History Ozempic 2 mg SQ 1XW 06/12/19 06/12/19 Unknown History Vitamin B-12 1 tab PO DAILY 06/12/19 06/12/19 Unknown History cephALEXin [Keflex] 500 mg PO Q12HR 10 Days #20 cap 06/12/19 Unknown Rx Active Meds: Active Medications Acetaminophen (Tylenol) 650 mg PO Q4H PRN PRN Reason: Pain MILD(1-3)/Fever >100.5/FUENTES Amlodipine Besylate (Amlodipine) 10 mg PO QDAY [facility] Last Admin: 06/14/19 15:55 Dose: 10 mg Documented by: Carvedilol (Coreg) 3.125 mg PO BID [facility] Cyanocobalamin (Vitamin B-12) 100 mcg PO QDAY [facility] Last Admin: 06/14/19 14:11 Dose: 100 mcg Documented by: Hydralazine HCl (Apresoline) 10 mg IV Q30MIN PRN PRN Reason: Hypertension Sodium Chloride (Nacl 0.9% 1000 Ml) 1,000 mls @ 100 mls/hr IV DIRECT [facility] Last Admin: 06/14/19 14:12 Dose: 100 mls/hr Documented by: Clindamycin HCl (Cleocin 600 Mg/50 Ml) 600 mg in 50 mls @ 100 mls/hr IV Q8HR [facility]; Protocol Last Admin: 06/14/19 13:58 Dose: 100 mls/hr Documented by: Insulin Human Regular (Humulin R) 0 units SUB-Q ACHS [facility]; Protocol Last Admin: 06/14/19 17:58 Dose: 2 units Documented by: Miscellaneous Medication (Ozempic) 2 mg SQ 1XW [facility] Morphine Sulfate (Morphine) 2 mg IV Q4H PRN PRN Reason: Pain, Moderate (4-6) Naproxen (Naproxen) 500 mg PO BID [facility] Last Admin: 06/14/19 13:59 Dose: 500 mg Documented by: Ondansetron HCl (Zofran) 4 mg IV Q8H PRN PRN Reason: Nausea And Vomiting Sodium Chloride (Sodium Chloride Flush Syringe 10 Ml) 10 ml IV BID [facility] Last Admin: 06/14/19 14:00 Dose: 10 ml Documented by: Sodium Chloride (Sodium Chloride Flush Syringe 10 Ml) 10 ml IV PRN PRN PRN Reason: LINE FLUSH Physical Examination - Physical Exam Narrative exam: General Normal appearance, well developed, no acute distress Eyes - PERRLA, EOM intact ENT - Moist mucous membranes, no lymphadenopathy Neck - No noticeable or palpable swelling, redness or rash around throat or on face Lymph Nodes - No lymphadenopathy Cardiovascular - RRR no m/r/g, no JVD, no carotid bruits Lungs - Clear to auscultation, no use of accessory muscles, no crackles or wheezes. Skin - No rashes, skin warm and dry, no erythematous areas Abdomen - Normal bowel sounds, abdomen soft and nontender Extremities - No edema, cyanosis or clubbing Musculoskeletal - R foot bandaged Neurological Alert and oriented x 3, CN 2-12 grossly intact. - Constitutional Vitals: Vital Signs Temp Pulse Resp BP Pulse Ox 98.1 F 76 18 160/86 97 06/14/19 15:57 06/14/19 18:05 06/14/19 15:57 06/14/19 18:05 06/14/19 15:57 Temperature -Last 24 Hours Temperature 98.1 F Temperature 97.7 F Temperature 97.8 F Temperature 97.8 F Results - Labs CBC & Chem 7: 06/12/19 05:32 06/12/19 05:32 Labs: Abnormal lab results 06/13/19 06/14/19 06/14/19 Range/Units 21:10 08:08 12:35 POC Glucose 259 H 226 H 236 H (70-105) 06/14/19 Range/Units 16:44 POC Glucose 220 H (70-105) Assessment and Plan Cultures Blood culture 06/14 no growth to date Wound culture 06/13 MSSA Assessment: 54 yo F PMHx DM2 admitted with osteomyelitis and abscess of the R great toe 1. Osteomyelitis of the L great toe - She would prefer to try antibiotics at this time as opposed to amputation. MSSA is growing from the wound cultures. I listed her options: PICC and cefazolin vs. coming to our office for dalbavancin infusions. SHe said she would prefer the PICC and cefazolin, so I will order both the cefazolin 2g q8h in a case management consult, as well as the PICC insertion. May still need amputation in the future if the antibiotics are unsuccessful. WIll follow up in my clinic in 4 weeks. 2. DM2 - tight glycemic control for optimal wound healing. Recs: - cefazolin 2g q8h for 6 weeks. - Case management consult placed - PICC line ordered - OK for discharge from ID perspective when PICC in place and home health in place. Thank you for the consult, will follow [facility] M: [phone] O: [phone] F: [phone]
[2019-06-14] MEDS: carvediloL 3.125 MG TAB PO SCH (22:27)
[2019-06-15] MEDS: SODIUM CHLORIDE 0.9% 1000 ML 1,000 ML IV SCH ×2 (01:10→09:25)
[2019-06-15 08:58] LABS: BUN/Creatinine Ratio 15; Blood Urea Nitrogen 6 mg/dL (7-17); Calcium 8.5 mg/dL (8.4-10.2); Hemolysis Index 0
[2019-06-15] MEDS: NAPROXEN 500 MG TAB PO SCH ×2 (09:26→21:53)
[2019-06-15] MEDS: INSULIN REGULAR, HUMAN 100 UNITS/1 ML SUB-Q SCH ×4 (09:26→22:13)
[2019-06-15] MEDS: CYANOCOBALAMIN (VIT B-12) 100 MCG TAB PO SCH (09:26)
[2019-06-15] MEDS: amLODIPine 10 MG TAB PO SCH (09:30)
[2019-06-15] MEDS: carvediloL 3.125 MG TAB PO SCH ×2 (09:39→21:53)
--- NOTE | 2019-06-15 11:38 | Progress Note ---
Assessment and Plan Right great toe cellulites with ulcer and osteomyelitis to distal phalanxes - Continue to monitor the patient at [facility], continue IV antibiotic -s/p I&D 06/13/19 in the OR by Dr. Kwong - MRI suggestive of for distal phalanx osteomyelitis -wound culture and surgical culture growing staph aureus - Patient currently on clindamycin IV every 8 hours DM type 2, A1c 13.5 about a month ago - We'll continue consistent carb diet, sliding scale of insulin and long-acting insulin HTN, moderately controlled -We'll increase Norvasc to 10 MG daily Hyponatremia, resolved ontinue IV fluid hydration DVT prophylaxis with lovenox and as needed pain medicine MRI right foot: Findings of acute osteomyelitis involving the distal phalanx of the great toe, with abscess formation abutting the distal phalanx laterally. Subjective Date of service: 06/15/19 Principal diagnosis: Rt Grt toe osteomyelitis Interval history: Pt is a 54-year-old female with PMHx of DM type 2 who presents to the ER with c/o right great toe infection. Pt states that she noticed that her right great toe was swollen, she came to the ER and was prescribed antibiotics and discharge home. Pt states that she developed a blister on her plantar area of the right great toe 2 days after starting the antibiotics, she notices yellow discharged around the blister, the swelling and pain get worse, she was also concern for a DVT, she decided to return to the ER for evaluation. Pt was seen in the ER, she was started on IV antibiotic and admitted for further evaluation and treatment. Status post I&D by Dr. Kwong, MRI suggestive of acute osteomyelitis, consulted ID for antibiotic coverage. Objective - Constitutional Vitals: Vital Signs - 12hr 06/15/19 06/15/19 06/15/19 01:59 EDT 06:25 09:30 Temperature 97.8 F 97.6 F Pulse Rate 76 82 77 Respiratory 20 18 Rate Blood Pressure 161/85 150/89 156/95 O2 Sat by Pulse 96 98 Oximetry General appearance: Present: no acute distress, well-nourished - EENT Eyes: PERRL, EOM intact ENT: hearing intact, clear oral mucosa Ears: bilateral: normal - Neck Neck: supple, normal ROM - Respiratory Respiratory effort: normal Respiratory: bilateral: CTA - Breasts Breasts: normal - Cardiovascular Rhythm: regular Heart Sounds: Present: S1 & S2. Absent: gallop, rub Extremities: pulses intact, No edema, normal color, Full ROM - Gastrointestinal General gastrointestinal: Present: soft, non-tender, non-distended, normal bowel sounds - Genitourinary Female genitourinary: normal - Integumentary Integumentary: clear, warm, dry - Musculoskeletal Musculoskeletal: 1, strength equal bilaterally - Neurologic Neurologic: moves all extremities - Psychiatric Psychiatric: memory intact, appropriate mood/affect, intact judgment & insight - Labs CBC & Chem 7: 06/12/19 05:32 06/15/19 07:59 Labs: Abnormal lab results 06/14/19 06/14/19 06/14/19 Range/Units 12:35 16:44 21:31 BUN (7-17) mg/dL Creatinine (0.7-1.2) mg/dL Glucose (65-100) mg/dL POC Glucose 236 H 220 H 222 H (70-105) 06/15/19 06/15/19 Range/Units 07:59 08:37 BUN 6 L (7-17) mg/dL Creatinine 0.4 L (0.7-1.2) mg/dL Glucose 189 H (65-100) mg/dL POC Glucose 185 H (70-105)
[2019-06-15] MEDS: SODIUM HYPOCHLORITE, DAKIN'S 1/2 STRENGTH (0.25%) 473 ML TOPICAL SOLN TP SCH (16:38)
[2019-06-15] MEDS: ENOXAPARIN 40 MG/0.4 ML INJ SUB-Q SCH (21:52)
[2019-06-15] MEDS: INSULIN GLARGINE 100 UNITS/ML SUB-Q SCH (22:12)
[2019-06-16] MEDS: SODIUM CHLORIDE 0.9% 1000 ML 1,000 ML IV SCH ×2 (00:19→13:51)
[2019-06-16] MEDS: INSULIN REGULAR, HUMAN 100 UNITS/1 ML SUB-Q SCH ×4 (07:30→22:53)
[2019-06-16] MEDS: NAPROXEN 500 MG TAB PO SCH ×2 (10:11→22:54)
[2019-06-16] MEDS: carvediloL 3.125 MG TAB PO SCH ×2 (10:11→22:56)
[2019-06-16] MEDS: amLODIPine 10 MG TAB PO SCH (10:11)
[2019-06-16] MEDS: CYANOCOBALAMIN (VIT B-12) 100 MCG TAB PO SCH (10:12)
[2019-06-16] MEDS: SODIUM HYPOCHLORITE, DAKIN'S 1/2 STRENGTH (0.25%) 473 ML TOPICAL SOLN TP SCH (10:12)
--- NOTE | 2019-06-16 14:00 | Progress Note ---
Assessment and Plan Cultures Blood culture 06/14 no growth to date Wound culture 06/13 MSSA Assessment: 54 yo F PMHx DM2 admitted with osteomyelitis and abscess of the R great toe 1. Osteomyelitis of the L great toe - She would prefer to try antibiotics at t his time as opposed to amputation. MSSA is growing from the wound cultures. I listed her options: PICC and cefazolin vs. coming to our office for dalbavancin infusions. SHe said she would prefer the PICC and cefazolin, so I will order both the cefazolin 2g q8h in a case management consult, as well as the PICC insertion. May still need amputation in the future if the antibiotics are unsuccessful. WIll follow up in my clinic in 4 weeks. 2. DM2 - tight glycemic control for optimal wound healing. Recs: - cefazolin 2g q8h for 6 weeks. - Case management consult placed - PICC line ordered - OK for discharge from ID perspective Thank you for the consult, will follow [facility] M: [phone] O: [phone] F: [phone] Subjective Date of service: 06/16/19 Principal diagnosis: Rt Grt toe osteomyelitis Interval history: feels well, no acute complaints. wants to go home. Objective - Exam Narrative Exam: General Normal appearance, well developed, no acute distress Eyes - PERRLA, EOM intact ENT - Moist mucous membranes, no lymphadenopathy Neck - No noticeable or palpable swelling, redness or rash around throat or on face Lymph Nodes - No lymphadenopathy Cardiovascular - RRR no m/r/g, no JVD, no carotid bruits Lungs - Clear to auscultation, no use of accessory muscles, no crackles or wheezes. Skin - No rashes, skin warm and dry, no erythematous areas Abdomen - Normal bowel sounds, abdomen soft and nontender Extremities - No edema, cyanosis or clubbing Musculoskeletal - R foot bandaged Neurological Alert and oriented x 3, CN 2-12 grossly intact. - Constitutional Vitals: Vital Signs Temp Pulse Resp BP Pulse Ox 98.0 F 82 20 143/90 97 06/16/19 11:19 06/16/19 11:19 06/16/19 11:19 06/16/19 11:19 06/16/19 11:19 Temperature -Last 24 Hours Temperature 98.0 F Temperature 98.0 F Temperature 97.8 F Temperature 98.3 F - Labs CBC & Chem 7: 06/12/19 05:32 06/15/19 07:59 Labs: Abnormal lab results 06/15/19 06/15/19 06/16/19 Range/Units 16:58 21:45 08:11 POC Glucose 193 H 222 H 218 H (70-105) 06/16/19 Range/Units 11:12 POC Glucose 216 H (70-105)
--- NOTE | 2019-06-16 14:52 | Progress Note ---
Assessment and Plan Right great toe cellulites with ulcer and osteomyelitis to distal phalanxes - Continue to monitor the patient at [facility], continue IV antibiotic -s/p I&D 06/13/19 in the OR by Dr. Kwong - MRI suggestive of for distal phalanx osteomyelitis -wound culture and surgical culture growing staph aureus -cefazolin 2g q8h for 6 weeks. - Case management consult placed DM type 2, A1c 13.5 about a month ago - We'll continue consistent carb diet, sliding scale of insulin and long-acting insulin HTN, moderately controlled -We'll increase Norvasc to 10 MG daily Hyponatremia, resolved ontinue IV fluid hydration DVT prophylaxis with lovenox and as needed pain medicine MRI right foot: Findings of acute osteomyelitis involving the distal phalanx of the great toe, with abscess formation abutting the distal phalanx laterally. Subjective Date of service: 06/16/19 Principal diagnosis: Rt Grt toe osteomyelitis Interval history: Pt is a 54-year-old female with PMHx of DM type 2 who presents to the ER with c/o right great toe infection. Pt states that she noticed that her right great toe was swollen, she came to the ER and was prescribed antibiotics and discharge home. Pt states that she developed a blister on her plantar area of the right great toe 2 days after starting the antibiotics, she notices yellow discharged a round the blister, the swelling and pain get worse, she was also concern for a DVT, she decided to return to the ER for evaluation. Pt was seen in the ER, she was started on IV antibiotic and admitted for further evaluation and treatment. Status post I&D by Dr. Kwong, MRI suggestive of acute osteomyelitis, consulted ID for antibiotic coverage. Patient for home IV antibiotics for 6 weeks. Once the arrangements are done patient to be discharged home today or tomorrow. PICC line already placed. Objective - Constitutional Vitals: Vital Signs - 12hr 06/16/19 06/16/19 05:29 11:19 Temperature 98.0 F 98.0 F Pulse Rate 85 82 Respiratory 18 20 Rate Blood Pressure 141/75 143/90 O2 Sat by Pulse 97 97 Oximetry General appearance: Present: no acute distress, well-nourished - EENT Eyes: PERRL, EOM intact ENT: hearing intact, clear oral mucosa Ears: bilateral: normal - Neck Neck: supple, normal ROM - Respiratory Respiratory effort: normal Respiratory: bilateral: CTA - Breasts Breasts: normal - Cardiovascular Heart rate: 76 Rhythm: regular Heart Sounds: Present: S1 & S2. Absent: gallop, rub Extremities: pulses intact, No edema, normal color, Full ROM, abnormal (right great toe with discoloration.) - Gastrointestinal General gastrointestinal: Present: soft, non-tender, non-distended, normal bowel sounds - Genitourinary Female genitourinary: normal - Integumentary Integumentary: clear, warm, dry - Musculoskeletal Musculoskeletal: 1, strength equal bilaterally - Neurologic Neurologic: moves all extremities - Psychiatric Psychiatric: memory intact, appropriate mood/affect, intact judgment & insight - Labs CBC & Chem 7: 06/12/19 05:32 06/15/19 07:59 Labs: Abnormal lab results 06/15/19 06/15/19 06/16/19 Range/Units 16:58 21:45 08:11 POC Glucose 193 H 222 H 218 H (70-105) 06/16/19 Range/Units 11:12 POC Glucose 216 H (70-105)
[2019-06-16] MEDS: INSULIN GLARGINE 100 UNITS/ML SUB-Q SCH (22:53)
[2019-06-16] MEDS: ENOXAPARIN 40 MG/0.4 ML INJ SUB-Q SCH (22:57)
[2019-06-17] MEDS: SODIUM CHLORIDE 0.9% 1000 ML 1,000 ML IV SCH (02:41)
[2019-06-17 06:51] VITALS: BP 136/84
[2019-06-17] MEDS: INSULIN REGULAR, HUMAN 100 UNITS/1 ML SUB-Q SCH (07:30)
[2019-06-17] MEDS: NAPROXEN 500 MG TAB PO SCH (09:57)
[2019-06-17] MEDS: carvediloL 3.125 MG TAB PO SCH (09:57)
[2019-06-17] MEDS: CYANOCOBALAMIN (VIT B-12) 100 MCG TAB PO SCH (09:57)
[2019-06-17] MEDS: amLODIPine 10 MG TAB PO SCH (09:57)
[2019-06-17] MEDS: SODIUM HYPOCHLORITE, DAKIN'S 1/2 STRENGTH (0.25%) 473 ML TOPICAL SOLN TP SCH (09:58)
--- NOTE | 2019-06-17 10:02 | Discharge Summary ---
Providers - Providers Date of Admission: 06/11/19 20:20 Date of discharge: 06/17/19 Attending physician: TRISTON CONTRERAS 06/11/19 23:14 Consult to Wound/ET Nurse [CONS] Routine Reason For Exam: wound eval 06/12/19 08:22 Consult to Wound/ET Nurse [CONS] Routine Reason For Exam: wound eval 06/12/19 13:31 Consult to Physician [CONS] Routine Comment: Consulting Provider: ZAY KWONG Physician Instructions: Reason For Exam: Rt LE wound 06/14/19 11:48 Consult to Physician [CONS] Routine Comment: Consulting Provider: MARY ANNE BEAR Physician Instructions: Reason For Exam: osteomylitis 06/14/19 15:12 Consult to Case Management [CONS] Routine Services Needed at Discharge: Home Health Services Notified:: [email or web address] Additional Physician Instructions: [facility] M: [phone] O: [phone] F: [phone] OUTPATIENT PARENTERAL ANTIBIOTIC THERAPY ORDERS Diagnosis: MSSA osteomyelitis Antimicrobial administration: cefazolin 2g q8h until 07/25/19 Line: PICC Lab monitoring: CBC with diff, BUN, creatinine, LFTs, ESR, CRP once per week preferably on Sunday mornings. Please fax results to [phone] and call [phone] Cota 06/14/2019 Consult to PICC Line RN [CONS] Routine Reason For Exam: terminal superintendent antibiotics Type Line:: PICC 06/15/19 12:01 Consult to Wound/ET Nurse [CONS] Routine Reason For Exam: wound eval Primary care physician: [employer] [employer] Hospitalization Condition: Fair Hospital course: Patient is a 54-year-old female with PMHx of DM type 2 who presents to the ER with c/o right great toe infection. Pt states that she noticed that her right great toe was swollen, she came to the ER and was prescribed antibiotics. Pt states that she was seen in the ER 5 days ago and was started on the antibiotic (Keflex and Bactrim). She developed a blister on her plantar area of the right great toe 2 days after starting the antibiotics, the swelling and pain get worse, so she returned to the ER for evaluation. Pt was seen in the ER, she was started on IV antibiotic and admitted for further evaluation and treatment. Right great toe cellulites with ulcer and osteomyelitis to distal phalanxes - Continue to monitor the patient at [facility], continue IV antibiotic -s/p I&D 06/13/19 in the OR by Dr. Kwong - MRI suggestive of for distal phalanx osteomyelitis -wound culture and surgical culture growing staph aureus -cefazolin 2g iv q8h for 6 weeks. - Case management consulted, arragements made DM type 2, A1c 13.5 about a month ago - We'll continue consistent carb diet, sliding scale of insulin and long-acting insulin HTN Medications adjusted during admission Hyponatremia, resolved Total time spent on discharge, 35 mins Disposition: TO HOME OR SELFCARE - Discharge Diagnoses (1) Osteomyelitis Status: Acute Qualifiers: Osteomyelitis location: foot Laterality: right (2) HTN (hypertension) Status: Acute (3) Diabetes mellitus type 2 in obese Status: Acute (4) Cellulitis of great toe, right Status: Acute Core Measure Documentation - Palliative Care Palliative Care/ Comfort Measures: Not Applicable - Core Measures Any of the following diagnoses?: none Exam - Constitutional Vitals: Temp Pulse Resp BP Pulse Ox 32.1 F L 85 18 136/84 98 06/17/19 05:49 06/17/19 05:49 06/17/19 05:49 06/17/19 05:49 06/17/19 05:49 Plan Diet: low fat, low cholesterol, low salt, diabetic Special Instructions: home health RN Plan of Treatment: 1.Follow up with PCP or [facility] in 1 week. 2.Follow up with Dr. Zay Kwong in 1 week 3.Follow up with Dr. Moses Cota in 1 week 4.Continue Cefazolin 2g iv Q 8hr for total 6 weeks 5.Follow up at Wound clinic on 06/19/19 Follow up with: PRIMARY CARE, [Primary Care Provider] - 3-5 Days Prescriptions: amLODIPine 10 mg PO QDAY #30 tablet
--- NOTE | 2019-06-17 12:57 | Progress Note ---
Assessment and Plan Cultures Blood culture 06/14 no growth to date Wound culture 06/13 MSSA Assessment: 54 yo F PMHx DM2 admitted with osteomyelitis and abscess of the R great toe 1. Osteomyelitis of the L great toe - She would prefer to try antibiotics at t his time as opposed to amputation. MSSA is growing from the wound cultures. I listed her options: PICC and cefazolin vs. coming to our office for dalbavancin infusions. SHe said she would prefer the PICC and cefazolin, so I will order both the cefazolin 2g q8h in a case management consult, as well as the PICC insertion. May still need amputation in the future if the antibiotics are unsuccessful. WIll follow up in my clinic in 4 weeks. 2. DM2 - tight glycemic control for optimal wound healing. Recs: - cefazolin 2g q8h for 6 weeks. - will be seen in our office at 2pm today for teach and train of home antibiotics. - OK for discharge from ID perspective Thank you for the consult, will follow [facility] M: [phone] O: [phone] F: [phone] Subjective Date of service: 06/17/19 Principal diagnosis: Rt Grt toe osteomyelitis Interval history: feels well, no acute complaints. wants to go home. Objective - Exam Narrative Exam: General Normal appearance, well developed, no acute distress Eyes - PERRLA, EOM intact ENT - Moist mucous membranes, no lymphadenopathy Neck - No noticeable or palpable swelling, redness or rash around throat or on face Lymph Nodes - No lymphadenopathy Cardiovascular - RRR no m/r/g, no JVD, no carotid bruits Lungs - Clear to auscultation, no use of accessory muscles, no crackles or wheezes. Skin - No rashes, skin warm and dry, no erythematous areas Abdomen - Normal bowel sounds, abdomen soft and nontender Extremities - No edema, cyanosis or clubbing Musculoskeletal - R foot bandaged Neurological Alert and oriented x 3, CN 2-12 grossly intact. - Constitutional Vitals: Vital Signs Temp Pulse Resp BP Pulse Ox 32.1 F L 85 18 136/84 98 06/17/19 05:49 06/17/19 05:49 06/17/19 05:49 06/17/19 05:49 06/17/19 05:49 Temperature -Last 24 Hours Temperature 32.1 F Temperature 99.0 F Temperature 98.6 F Temperature 97.5 F - Labs CBC & Chem 7: 06/12/19 05:32 06/15/19 07:59 Labs: Abnormal lab results 06/16/19 06/16/19 06/17/19 Range/Units 17:19 22:00 07:41 POC Glucose 126 H 424 H 202 H (70-105) 06/17/19 Range/Units 11:08 POC Glucose 162 H (70-105)
== END 2019-06-17 11:00 | disposition home or self-care (01) | DRG 638 ==
LOC: ED 14:03 → 3A 20:20 → INTOOBSV 20:20 → OBSVTOIN 20:20
PROVIDERS: ADMIT Internal Medicine; ATTEND Internal Medicine
PROC: 0Y9M0ZZ Drainage of Right Foot, Open Approach (ICD-10-PCS; principal; 2019-06-13)
PROC: 05HY33Z Insertion of Infusion Device into Upper Vein, Percutaneous Approach (ICD-10-PCS; 2019-06-15)
DX: E11.69 Type 2 diabetes mellitus with other specified complication (principal); L02.611 Cutaneous abscess of right foot; E87.1 Hypo-osmolality and hyponatremia; M86.171 Other acute osteomyelitis, right ankle and foot; E11.621 Type 2 diabetes mellitus with foot ulcer; L03.031 Cellulitis of right toe; L97.512 Non-pressure chronic ulcer of other part of right foot with fat layer exposed; E11.40 Type 2 diabetes mellitus with diabetic neuropathy, unspecified; L08.9 Local infection of the skin and subcutaneous tissue, unspecified; I10 Essential (primary) hypertension; Z79.899 Other long term (current) drug therapy
CPT/HCPCS: 36415; 80048; 82962; 83036; 85025; 87040; 87075; 87076; 87116; 87186; 96365; 96367; G0378; A6260; A9577; J0690; J1650; J1815; J2250; J2543; J2704; J7030

== ENCOUNTER 2019-06-19 08:18 | Outpatient (CLI) | payer BC ==
[2019-06-19] MEDS ORDERED: SILVER NITRATE APPLICATOR 1 EA TP ONE (10:30)
== END 2019-06-19 08:19 | disposition home or self-care (01) ==
LOC: WOUND 08:18
PROVIDERS: ATTEND Surgery
DX: E11.621 Type 2 diabetes mellitus with foot ulcer (principal); L97.515 Non-pressure chronic ulcer of other part of right foot with muscle involvement without evidence of necrosis; E11.69 Type 2 diabetes mellitus with other specified complication; M86.471 Chronic osteomyelitis with draining sinus, right ankle and foot; I10 Essential (primary) hypertension; Z90.49 Acquired absence of other specified parts of digestive tract
CPT/HCPCS: 11043; G0463; 99214

== ENCOUNTER 2019-06-25 15:01 | Outpatient (CLI) | payer BC ==
--- NOTE | 2019-06-25 15:31 | XRay Report ---
CHEST 2 VIEWS INDICATION: FOR HBOT CLEARANCE/TYPE 2 DIABETES MELLITUS WITH FOOT ULCER. COMPARISON: None FINDINGS: Support devices: None. Heart: Within normal limits. Lungs/pleura: No acute air space or interstitial disease. No pneumothorax. Additional findings: None. IMPRESSION: Normal chest x-ray Signer Name: Jim Parrish Jr, MD Signed: 06/25/2019 3:27 PM Workstation Name: [id number]
== END 2019-06-25 15:02 | disposition home or self-care (01) ==
LOC: XRAY 15:01
PROVIDERS: ATTEND Surgery
DX: E11.621 Type 2 diabetes mellitus with foot ulcer (principal)
CPT/HCPCS: 71046

== ENCOUNTER 2019-06-26 08:59 | Outpatient (CLI) | payer BC | END 2019-06-26 09:00 | disposition home or self-care (01) | LOC: WOUND 08:59 | PROVIDERS: ATTEND Surgery | DX: E11.621 Type 2 diabetes mellitus with foot ulcer (principal); L97.515 Non-pressure chronic ulcer of other part of right foot with muscle involvement without evidence of necrosis; E11.69 Type 2 diabetes mellitus with other specified complication; M86.471 Chronic osteomyelitis with draining sinus, right ankle and foot; I10 Essential (primary) hypertension; Z90.49 Acquired absence of other specified parts of digestive tract | CPT/HCPCS: 11043; 82962; G0277; 99183 ==

== ENCOUNTER 2019-06-27 10:05 | Outpatient (CLI) | payer BC | END 2019-06-27 10:06 | disposition home or self-care (01) | LOC: WOUND 10:05 | PROVIDERS: ATTEND Surgery | DX: E11.621 Type 2 diabetes mellitus with foot ulcer (principal); L97.511 Non-pressure chronic ulcer of other part of right foot limited to breakdown of skin; E11.69 Type 2 diabetes mellitus with other specified complication; M86.471 Chronic osteomyelitis with draining sinus, right ankle and foot; I10 Essential (primary) hypertension; Z90.49 Acquired absence of other specified parts of digestive tract | CPT/HCPCS: 82962; 99183; G0277 ==

== ENCOUNTER 2019-06-30 08:10 | Outpatient (CLI) | payer BC | END 2019-06-30 08:11 | disposition home or self-care (01) | LOC: WOUND 08:10 | PROVIDERS: ATTEND Surgery | DX: E11.621 Type 2 diabetes mellitus with foot ulcer (principal); L97.511 Non-pressure chronic ulcer of other part of right foot limited to breakdown of skin; E11.69 Type 2 diabetes mellitus with other specified complication; M86.471 Chronic osteomyelitis with draining sinus, right ankle and foot; I10 Essential (primary) hypertension; Z90.49 Acquired absence of other specified parts of digestive tract | CPT/HCPCS: 82962; 99183; G0277 ==

== ENCOUNTER 2019-07-02 09:59 | Outpatient (CLI) | payer BC | END 2019-07-02 10:00 | disposition home or self-care (01) | LOC: WOUND 09:59 | PROVIDERS: ATTEND Surgery | DX: E11.621 Type 2 diabetes mellitus with foot ulcer (principal); L97.511 Non-pressure chronic ulcer of other part of right foot limited to breakdown of skin; E11.69 Type 2 diabetes mellitus with other specified complication; M86.471 Chronic osteomyelitis with draining sinus, right ankle and foot; I10 Essential (primary) hypertension; Z90.49 Acquired absence of other specified parts of digestive tract | CPT/HCPCS: 82962; 99183; G0277 ==

== ENCOUNTER 2019-07-03 10:07 | Outpatient (CLI) | payer BC | END 2019-07-03 10:08 | disposition home or self-care (01) | LOC: WOUND 10:07 | PROVIDERS: ATTEND Surgery | DX: E11.621 Type 2 diabetes mellitus with foot ulcer (principal); L97.511 Non-pressure chronic ulcer of other part of right foot limited to breakdown of skin; E11.69 Type 2 diabetes mellitus with other specified complication; M86.471 Chronic osteomyelitis with draining sinus, right ankle and foot; I10 Essential (primary) hypertension; Z90.49 Acquired absence of other specified parts of digestive tract | CPT/HCPCS: 82962; 99183; G0277 ==

== ENCOUNTER 2019-07-04 10:02 | Outpatient (CLI) | payer BC | END 2019-07-04 10:03 | disposition home or self-care (01) | LOC: WOUND 10:02 | PROVIDERS: ATTEND Surgery | DX: E11.621 Type 2 diabetes mellitus with foot ulcer (principal); L97.511 Non-pressure chronic ulcer of other part of right foot limited to breakdown of skin; E11.69 Type 2 diabetes mellitus with other specified complication; M86.471 Chronic osteomyelitis with draining sinus, right ankle and foot; I10 Essential (primary) hypertension; Z90.49 Acquired absence of other specified parts of digestive tract | CPT/HCPCS: 82962; G0277; 99183 ==

== ENCOUNTER 2019-07-07 09:50 | Outpatient (CLI) | payer BC | END 2019-07-07 09:51 | disposition home or self-care (01) | LOC: WOUND 09:50 | PROVIDERS: ATTEND Surgery | DX: E11.621 Type 2 diabetes mellitus with foot ulcer (principal); L97.511 Non-pressure chronic ulcer of other part of right foot limited to breakdown of skin; E11.69 Type 2 diabetes mellitus with other specified complication; M86.471 Chronic osteomyelitis with draining sinus, right ankle and foot; I10 Essential (primary) hypertension; Z90.49 Acquired absence of other specified parts of digestive tract | CPT/HCPCS: 82962; 99183; G0277 ==

== ENCOUNTER 2019-07-08 10:02 | Outpatient (CLI) | payer BC | END 2019-07-08 10:03 | disposition home or self-care (01) | LOC: WOUND 10:02 | PROVIDERS: ATTEND Surgery | DX: E11.621 Type 2 diabetes mellitus with foot ulcer (principal); L97.511 Non-pressure chronic ulcer of other part of right foot limited to breakdown of skin; E11.69 Type 2 diabetes mellitus with other specified complication; M86.471 Chronic osteomyelitis with draining sinus, right ankle and foot; I10 Essential (primary) hypertension; Z90.49 Acquired absence of other specified parts of digestive tract | CPT/HCPCS: 82962; G0277; 99183 ==

== ENCOUNTER 2019-07-09 09:01 | Outpatient (CLI) | payer BC | END 2019-07-09 09:02 | disposition home or self-care (01) | LOC: WOUND 09:01 | PROVIDERS: ATTEND Surgery | DX: E11.621 Type 2 diabetes mellitus with foot ulcer (principal); L97.511 Non-pressure chronic ulcer of other part of right foot limited to breakdown of skin; E11.69 Type 2 diabetes mellitus with other specified complication; M86.471 Chronic osteomyelitis with draining sinus, right ankle and foot; I10 Essential (primary) hypertension; Z90.49 Acquired absence of other specified parts of digestive tract | CPT/HCPCS: 11043; 82962; G0277; 99183 ==

== ENCOUNTER 2019-07-14 10:04 | Outpatient (CLI) | payer BC | END 2019-07-14 10:05 | disposition home or self-care (01) | LOC: WOUND 10:04 | PROVIDERS: ATTEND Surgery | DX: E11.621 Type 2 diabetes mellitus with foot ulcer (principal); L97.511 Non-pressure chronic ulcer of other part of right foot limited to breakdown of skin; E11.69 Type 2 diabetes mellitus with other specified complication; M86.471 Chronic osteomyelitis with draining sinus, right ankle and foot; I10 Essential (primary) hypertension; Z90.49 Acquired absence of other specified parts of digestive tract | CPT/HCPCS: 82962; 99183; G0277 ==

== ENCOUNTER 2019-07-15 09:59 | Outpatient (CLI) | payer BC | END 2019-07-15 10:00 | disposition home or self-care (01) | LOC: WOUND 09:59 | PROVIDERS: ATTEND Surgery | DX: E11.621 Type 2 diabetes mellitus with foot ulcer (principal); L97.511 Non-pressure chronic ulcer of other part of right foot limited to breakdown of skin; E11.69 Type 2 diabetes mellitus with other specified complication; M86.471 Chronic osteomyelitis with draining sinus, right ankle and foot; I10 Essential (primary) hypertension; Z90.49 Acquired absence of other specified parts of digestive tract | CPT/HCPCS: 82962; G0277; 99183 ==

== ENCOUNTER 2019-07-16 10:02 | Outpatient (CLI) | payer BC | END 2019-07-16 10:03 | disposition home or self-care (01) | LOC: WOUND 10:02 | PROVIDERS: ATTEND Surgery | DX: E11.621 Type 2 diabetes mellitus with foot ulcer (principal); L97.511 Non-pressure chronic ulcer of other part of right foot limited to breakdown of skin; E11.69 Type 2 diabetes mellitus with other specified complication; M86.471 Chronic osteomyelitis with draining sinus, right ankle and foot; I10 Essential (primary) hypertension; Z90.49 Acquired absence of other specified parts of digestive tract | CPT/HCPCS: 82962; 99183; G0277 ==

== ENCOUNTER 2019-07-17 09:08 | Outpatient (CLI) | payer BC ==
[2019-07-17] MEDS ORDERED: LIDOCAINE (4%) 40 MG/ML TOPICAL SOLN 50 ML BOTTLE TP ONE (10:00)
== END 2019-07-17 09:09 | disposition home or self-care (01) ==
LOC: WOUND 09:08
PROVIDERS: ATTEND Surgery
DX: E11.621 Type 2 diabetes mellitus with foot ulcer (principal); L97.512 Non-pressure chronic ulcer of other part of right foot with fat layer exposed; E11.69 Type 2 diabetes mellitus with other specified complication; M86.471 Chronic osteomyelitis with draining sinus, right ankle and foot; I10 Essential (primary) hypertension; Z90.49 Acquired absence of other specified parts of digestive tract
CPT/HCPCS: 11043; 82962; G0277; 99183

== ENCOUNTER 2019-07-18 10:07 | Outpatient (CLI) | payer BC | END 2019-07-18 10:08 | disposition home or self-care (01) | LOC: WOUND 10:07 | PROVIDERS: ATTEND Surgery | DX: E11.621 Type 2 diabetes mellitus with foot ulcer (principal); L97.512 Non-pressure chronic ulcer of other part of right foot with fat layer exposed; E11.69 Type 2 diabetes mellitus with other specified complication; M86.471 Chronic osteomyelitis with draining sinus, right ankle and foot; I10 Essential (primary) hypertension; Z90.49 Acquired absence of other specified parts of digestive tract | CPT/HCPCS: 82962; 99183; G0277 ==

== ENCOUNTER 2019-07-21 10:06 | Outpatient (CLI) | payer BC | END 2019-07-21 10:07 | disposition home or self-care (01) | LOC: WOUND 10:06 | PROVIDERS: ATTEND Surgery | DX: E11.621 Type 2 diabetes mellitus with foot ulcer (principal); L97.512 Non-pressure chronic ulcer of other part of right foot with fat layer exposed; E11.69 Type 2 diabetes mellitus with other specified complication; M86.471 Chronic osteomyelitis with draining sinus, right ankle and foot; I10 Essential (primary) hypertension; Z90.49 Acquired absence of other specified parts of digestive tract | CPT/HCPCS: 82962; 99183; G0277 ==

== ENCOUNTER 2019-07-22 10:03 | Outpatient (CLI) | payer BC | END 2019-07-22 10:04 | disposition home or self-care (01) | LOC: WOUND 10:03 | PROVIDERS: ATTEND Surgery | DX: E11.621 Type 2 diabetes mellitus with foot ulcer (principal); L97.512 Non-pressure chronic ulcer of other part of right foot with fat layer exposed; E11.69 Type 2 diabetes mellitus with other specified complication; M86.471 Chronic osteomyelitis with draining sinus, right ankle and foot; I10 Essential (primary) hypertension; Z90.49 Acquired absence of other specified parts of digestive tract | CPT/HCPCS: 82962; G0277; 99183 ==

== ENCOUNTER 2019-07-23 10:06 | Outpatient (CLI) | payer BC | END 2019-07-23 10:07 | disposition home or self-care (01) | LOC: WOUND 10:06 | PROVIDERS: ATTEND Surgery | DX: E11.621 Type 2 diabetes mellitus with foot ulcer (principal); L97.512 Non-pressure chronic ulcer of other part of right foot with fat layer exposed; E11.69 Type 2 diabetes mellitus with other specified complication; M86.471 Chronic osteomyelitis with draining sinus, right ankle and foot; I10 Essential (primary) hypertension; Z90.49 Acquired absence of other specified parts of digestive tract | CPT/HCPCS: 82962; G0277; 99183 ==

== ENCOUNTER 2019-07-24 09:07 | Outpatient (CLI) | payer BC ==
[2019-07-24] MEDS ORDERED: LIDOCAINE (4%) 40 MG/ML TOPICAL SOLN 50 ML BOTTLE TP NR (10:00)
== END 2019-07-24 09:08 | disposition home or self-care (01) ==
LOC: WOUND 09:07
PROVIDERS: ATTEND Surgery
DX: E11.621 Type 2 diabetes mellitus with foot ulcer (principal); L97.512 Non-pressure chronic ulcer of other part of right foot with fat layer exposed; E11.69 Type 2 diabetes mellitus with other specified complication; M86.471 Chronic osteomyelitis with draining sinus, right ankle and foot; I10 Essential (primary) hypertension; Z90.49 Acquired absence of other specified parts of digestive tract
CPT/HCPCS: 11042; G0277; 82962; 99183

== ENCOUNTER 2019-07-31 09:00 | Outpatient (CLI) | payer BC ==
[2019-07-31] MEDS ORDERED: LIDOCAINE (4%) 40 MG/ML TOPICAL SOLN 50 ML BOTTLE TP ONE (09:05)
== END 2019-07-31 09:01 | disposition home or self-care (01) ==
LOC: WOUND 09:00
PROVIDERS: ATTEND Surgery
DX: E11.621 Type 2 diabetes mellitus with foot ulcer (principal); L97.512 Non-pressure chronic ulcer of other part of right foot with fat layer exposed; E11.69 Type 2 diabetes mellitus with other specified complication; M86.471 Chronic osteomyelitis with draining sinus, right ankle and foot; I10 Essential (primary) hypertension; Z90.49 Acquired absence of other specified parts of digestive tract

== ENCOUNTER 2019-08-07 09:08 | Outpatient (CLI) | payer BC | END 2019-08-07 09:09 | disposition home or self-care (01) | LOC: WOUND 09:08 ==

== ENCOUNTER 2019-08-21 08:59 | Outpatient (CLI) | payer BC | END 2019-08-21 09:00 | disposition home or self-care (01) | LOC: WOUND 08:59 | PROVIDERS: ATTEND Surgery | DX: E11.621 Type 2 diabetes mellitus with foot ulcer (principal); L97.512 Non-pressure chronic ulcer of other part of right foot with fat layer exposed; E11.69 Type 2 diabetes mellitus with other specified complication; M86.471 Chronic osteomyelitis with draining sinus, right ankle and foot; I10 Essential (primary) hypertension; Z90.49 Acquired absence of other specified parts of digestive tract ==

== ENCOUNTER 2019-09-04 08:59 | Outpatient (CLI) | payer BC ==
[2019-09-04] MEDS ORDERED: LIDOCAINE (4%) 40 MG/ML TOPICAL SOLN 50 ML BOTTLE TP ONE (10:00)
== END 2019-09-04 09:00 | disposition home or self-care (01) ==
LOC: WOUND 08:59
PROVIDERS: ATTEND Surgery
DX: E11.621 Type 2 diabetes mellitus with foot ulcer (principal); L97.512 Non-pressure chronic ulcer of other part of right foot with fat layer exposed; E11.69 Type 2 diabetes mellitus with other specified complication; M86.471 Chronic osteomyelitis with draining sinus, right ankle and foot; I10 Essential (primary) hypertension; Z90.49 Acquired absence of other specified parts of digestive tract
CPT/HCPCS: 99213; G0463

== ENCOUNTER 2019-10-06 09:49 | Outpatient (CLI) | payer BC ==
--- NOTE | 2019-10-06 13:18 | Magnetic Resonance Report ---
MRI RIGHT FOOT WITHOUT CONTRAST INDICATION / CLINICAL INFORMATION: CHRONIC OSTEOMYELITIS. TECHNIQUE: Multiplanar, multisequence MR images were obtained. COMPARISON: Right foot MRI on 06/12/2019. FINDINGS: BONES: There is increased T2 signal and reduced T1 signal in the distal phalanx in the great toe cons istent with osteomyelitis. Chronic osseous fragmentation of the distal phalanx has mildly progressed from the prior study. Remaining bone marrow signal is normal. JOINTS: No significant arthritis. No significant joint effusion or synovitis. SUBCUTANEOUS SOFT TISSUES: No significant abnormality. MUSCLES: No significant abnormality. FLEXOR TENDONS: No significant abnormality. EXTENSOR TENDONS: No significant abnormality. LIGAMENTS: No significant abnormality. ADDITIONAL FINDINGS: None. IMPRESSION: 1. Mild progression in chronic bone destruction in the distal pharynx of the great toe with residual osteomyelitis in the great toe distal phalanx. 2. No additional sites of osteomyelitis. No abscess. Signer Name: Kalpesh Chicas MD Signed: 10/06/2019 1:13 PM Workstation Name: [id number]
== END 2019-10-06 09:50 | disposition home or self-care (01) ==
LOC: MRI 09:49
PROVIDERS: ATTEND Surgery
DX: S92.421D Displaced fracture of distal phalanx of right great toe, subsequent encounter for fracture with routine healing (principal); M86.671 Other chronic osteomyelitis, right ankle and foot; E11.621 Type 2 diabetes mellitus with foot ulcer; X58.XXXD Exposure to other specified factors, subsequent encounter

== ENCOUNTER 2019-10-09 13:58 | Outpatient (CLI) | payer BC | END 2019-10-09 13:59 | disposition home or self-care (01) | LOC: WOUND 13:58 | PROVIDERS: ATTEND Surgery | DX: E11.621 Type 2 diabetes mellitus with foot ulcer (principal); L97.512 Non-pressure chronic ulcer of other part of right foot with fat layer exposed; E11.69 Type 2 diabetes mellitus with other specified complication; M86.471 Chronic osteomyelitis with draining sinus, right ankle and foot; I10 Essential (primary) hypertension; Z90.49 Acquired absence of other specified parts of digestive tract | CPT/HCPCS: 99213; G0463 ==

== ENCOUNTER 2020-10-22 11:04 | Outpatient (CLI) | payer BC ==
[2020-10-22 11:38] LABS: Basophils # (Auto) 0.1 K/mm3 (0.0-0.1); Basophils % (Auto) 1.2 % (0.0-1.8); Eosinophils # (Auto) 0.3 K/mm3 (0.0-0.4); Eosinophils % (Auto) 5.9 % (0.0-4.3); Hematocrit 40.1 % (30.3-42.9); Hemoglobin 13.2 gm/dl (10.1-14.3); Lymphocytes # (Auto) 2.5 K/mm3 (1.2-5.4); Lymphocytes % (Auto) 43.3 % (13.4-35.0); Mean Corpuscular HGB Conc 33 % (30-34); Mean Corpuscular Volume 84 fl (79-97); Monocytes # (Auto) 0.4 K/mm3 (0.0-0.8); Monocytes % (Auto) 6.9 % (0.0-7.3); Platelet Count 293 K/mm3 (140-440); Red Blood Count 4.75 M/mm3 (3.65-5.03); Red Cell Distribution Width 12.3 % (13.2-15.2)
[2020-10-22 12:02] LABS: % Iron Saturation 20.06 %; Alanine Aminotransferase 48 units/L (7-56); Albumin 4.3 g/dL (3.9-5); Blood Urea Nitrogen 8 mg/dL (7-17); Calcium 9.5 mg/dL (8.4-10.2); HDL Cholesterol 40 mg/dL (40-59); Hemolysis Index 2; Iron 72 ug/dL (37-170); LDL Cholesterol,Direct 136 mg/dL (50-130); Total Iron Binding Capacity 359 mcg/dL (250-450)
[2020-10-22 12:03] LABS: BUN/Creatinine Ratio 13
== END 2020-10-22 11:05 | disposition home or self-care (01) ==
LOC: LAB 11:04
PROVIDERS: ATTEND Surgery
DX: K30 Functional dyspepsia (principal); E11.9 Type 2 diabetes mellitus without complications; E66.01 Morbid (severe) obesity due to excess calories
CPT/HCPCS: 36415; 80053; 80061; 82607; 82652; 82728; 83036; 83550; 84443; 85025; 85730